=== PATIENT | male | born 1935 | race Caucasian/White ===

== ENCOUNTER → 2017-05-26 | Outpatient (CLI) | payer MEDICARE ==
[~2017-05-26] MED LIST: ALLO15TA PO; ATOR40TA75 PO; B12-1CHW PO; BIMA01SOL OU; CLOP75TA2 PO; D3 A1000 PO; DORZ2OPD OU; E-Z-GAS II EFFERVESCENT PACKET (SODIUM BICARB./CITRIC ACID/SIMETHICONE) As Ordered ONE; E-Z-HD 98% w/w 340GM SUSP BTL As Ordered ONE; E-Z-PAQUE 96% w/w SUSP 176GM BTL As Ordered ONE; FOLI1TAB4 PO; GEMF600T PO; HYDR-3910 PO; LABE10TAB PO; MAGN70CA PO; OMEP40CA2 PO; SITA50TAB PO
--- NOTE | 2017-05-26 17:24 | REP ---
ESOPHAGRAM: The procedure was performed by NICK Mccormick under the direct supervision of Dr. Wiggins. All imaging was reviewed with Dr. Wiggins prior to dictation. The patient was able to ingest liquid barium and air in a quantity sufficient to produce a double contrast examination. This was a somewhat limited examination due to patient aspirating barium early on in the procedure. Tertiary contractions were noted from the portion of the examination that we were able to obtain. The patient also had a very prominent cricopharyngeus. IMPRESSION: Limited examination due to patient aspiration of barium. Tertiary contractions were noted as well as a prominent cricopharyngeus. Fluoroscopy time: 1 minute and 15 seconds. Reviewed by NICK Haney 05/27/2017 08:53 AEdited and Signed by Alberto Wiggins MD 05/27/2017 09:35 A
== END ==
LOC: M RAD 08:36
PROVIDERS: ATTEND Internal Medicine Gastroenterology
DX: R13.10 Dysphagia, unspecified (principal)

== ENCOUNTER 2017-06-03 06:46 | Outpatient (CLI) | payer MEDICARE ==
[~2017-06-03] VITALS: Ht 165.1 cm; Wt 67.6 kg
[~2017-06-03 06:46] MED LIST changes: -E-Z-GAS II EFFERVESCENT PACKET (SODIUM BICARB./CITRIC ACID/SIMETHICONE) As Ordered ONE; -E-Z-HD 98% w/w 340GM SUSP BTL As Ordered ONE; -E-Z-PAQUE 96% w/w SUSP 176GM BTL As Ordered ONE; -MAGN70CA PO
[2017-06-03] MEDS ORDERED: NS 1,000 ML IV ONE (07:00)
[2017-06-03] MEDS ORDERED: MAGN70CA PO (07:22)
[2017-06-03] MEDS ORDERED: PROPOFOL 200 MG/20 ML VIAL As Ordered ONE (07:51)
[2017-06-03] MEDS ORDERED: LIDOCAINE 2% INJ 100 MG/5 ML SDV (FOR ANES.) As Ordered ONE (07:51)
--- NOTE | 2017-06-03 08:07 | ROOR ---
Patient Name: Alpesh Rosales Procedure Date: 06/03/2017 7:35 AM Date of : 1935 Age: 82 Room: [facility] Gender: Male Note Status: Finalized Procedure: Upper GI endoscopy Indications: Dysphagia Providers: Dhiraj Morales MD Referring MD: FRANK BROWN MD Requesting Provider: Medicines: Monitored Anesthesia Care Complications: No immediate complications. Procedure: Pre-Anesthesia Assessment: - Prior to the procedure, a History and Physical was performed, and patient medications and allergies were reviewed. The patient is competent. The risks and benefits of the procedure and the sedation options and risks were discussed with the patient. All questions were answered and informed consent was obtained. Patient identification and proposed procedure were verified by the physician, the nurse and the counseling program leader in the procedure room. Mental Status Examination: normal. Airway Examination: normal oropharyngeal airway and neck mobility. Respiratory Examination: clear to auscultation. CV Examination: normal. Prophylactic Antibiotics: The patient does not require prophylactic antibiotics. Prior Anticoagulants: The patient has taken no previous anticoagulant or antiplatelet agents. ASA Grade Assessment: III - A patient with severe systemic disease. After reviewing the risks and benefits, the patient was deemed in satisfactory condition to undergo the procedure. The anesthesia plan was to use monitored anesthesia care (MAC). Immediately prior to administration of medications, the patient was re-assessed for adequacy to receive sedatives. The heart rate, respiratory rate, oxygen saturations, blood pressure, adequacy of pulmonary ventilation, and response to care were monitored throughout the procedure. The physical status of the patient was re-assessed after the procedure. The Endoscope was introduced through the mouth, and advanced to the second part of duodenum. The upper GI endoscopy was accomplished without difficulty. The patient tolerated the procedure well. Findings: The examined esophagus was normal. Biopsies were obtained from the proximal and distal esophagus with cold forceps for histology of suspected eosinophilic esophagitis. Upper esophageal sphincter spasmodic contraction - traversed easility with 0.8cm wide scope. Diffuse minimal inflammation characterized by erythema was found in the gastric antrum. Biopsies were taken with a cold forceps for histology. No gross lesions were noted in the duodenal bulb and in the second portion of the duodenum. Impression: - Normal esophagus. Biopsied. - Upper esophageal sphincter spasmodic contraction - likely related to dysphagia ( r/o neurologic etiology). - Gastritis. Biopsied. - No gross lesions in the duodenal bulb and in the second portion of the duodenum. Recommendation: - Patient has a contact number available for emergencies. The signs and symptoms of potential delayed complications were discussed with the patient. Return to normal activities tomorrow. Written discharge instructions were provided to the patient. - Resume previous diet. - Continue present medications. - Await pathology results. - Return to GI clinic as previously scheduled 06/16/2017 at 1:00 PM - Return to primary care physician. Dhiraj Morales MD Dhiraj Morales MD 06/03/2017 8:07:20 AM This report has been signed electronically. Number of Addenda: 0 Note Initiated On: 06/03/2017 7:35 AM Estimated Blood Loss: Estimated blood loss was minimal.
[2017-06-03 08:15] VITALS: BP 138/64
== END 2017-06-03 08:26 | disposition home or self-care (01) ==
LOC: M OPP 06:46
PROVIDERS: ATTEND Internal Medicine Gastroenterology
DX: R13.10 Dysphagia, unspecified (principal); K29.70 Gastritis, unspecified, without bleeding; K22.4 Dyskinesia of esophagus; I12.9 Hypertensive chronic kidney disease with stage 1 through stage 4 chronic kidney disease, or unspecified chronic kidney disease; E78.5 Hyperlipidemia, unspecified; E11.9 Type 2 diabetes mellitus without complications; M10.9 Gout, unspecified; R12 Heartburn; I63.9 Cerebral infarction, unspecified; N18.3 Chronic kidney disease, stage 3 (moderate); Z85.46 Personal history of malignant neoplasm of prostate; Z92.3 Personal history of irradiation; Z79.899 Other long term (current) drug therapy; Z79.84 Long term (current) use of oral hypoglycemic drugs; Z80.8 Family history of malignant neoplasm of other organs or systems

== ENCOUNTER → 2017-07-01 | Outpatient (CLI) | payer MEDICARE ==
[~2017-07-01] MED LIST changes: +LIQUID POLIBAR PLUS 105% w/v 1900ML BTL As Ordered ONE; +MAGN70CA PO
--- NOTE | 2017-07-01 16:45 | REP ---
DOUBLE CONTRAST BARIUM ENEMA: Time Stamp Assembler film of the abdomen and pelvis demonstrates vascular calcifications in the pelvis as well as multiple radiodensity in the region of the prostate. Double contrast barium enema is performed. There is free flow or barium through the colon with reflux into the terminal ileum with no evidence of obstruction. The entire colon distends well with no annular constricting mass. Multiple sigmoid diverticula are present. Sigmoid is quite redundant. The redundancy and multiple sigmoid diverticula limit evaluation for underlying polyps. Multiple other scattered diverticula are seen in the transverse and left colon. No definite polypoid filling defects are seen in any portion of the colon. IMPRESSION: No suspicious lesions. Colonic diverticulosis. 1 minute and 7 seconds of fluoroscopy time was utilized for the procedure. Signed by Alberto Wiggins MD 07/01/2017 05:24 P
== END ==
LOC: M RAD 09:33
PROVIDERS: ATTEND Internal Medicine Gastroenterology
DX: D64.9 Anemia, unspecified (principal)

== ENCOUNTER 2019-12-04 16:40 | Inpatient (IN) | payer MEDICARE ==
[~2019-12-04] VITALS: Ht 165.1 cm; Wt 67.1 kg
[~2019-12-04 16:40] MED LIST changes: -ALLO15TA PO; +ALLO300T2 PO; +FOLI1TAB11 PO; -FOLI1TAB4 PO; -GEMF600T PO; +GEMF600T5 PO; -LIQUID POLIBAR PLUS 105% w/v 1900ML BTL As Ordered ONE; -OMEP40CA2 PO; +OMEP40CA97 PO
[2019-12-04] MEDS ORDERED: GLUCOSE 4 GM CHEW TABLET PO PRN (18:30)
[2019-12-04] MEDS ORDERED: ONDANSETRON 4 MG TAB (S0181) PO PRN (18:30)
[2019-12-04] MEDS ORDERED: GLUCAGON FOR INJ 1 MG VIAL (J1610) SC PRN (18:30)
[2019-12-04] MEDS ORDERED: DEXTROSE 50% 50 ML SYRINGE IV PRN (18:30)
[2019-12-04] MEDS ORDERED: BISACODYL 10 MG SUPP PR PRN (18:30)
[2019-12-04] MEDS ORDERED: MECLIZINE 25 MG TABLET PO PRN (18:30)
[2019-12-04] MEDS ORDERED: traMADol 50 MG TAB PO PRN (18:30)
[2019-12-04 20:00] VITALS: BP 162/69
[2019-12-04] MEDS: IPRATROPIUM 0.5MG/ALBUTEROL 2.5MG INH SOL UD 3ML (DUONEB)(J7620) NEB SCH (20:00)
[2019-12-04] MEDS: REMEDY PHYTOPLEX Z-GUARD PASTE 113GM TUBE (FROM STOREROOM PRODUCT) TOP SCH (21:00)
[2019-12-04] MEDS: HumaLOG INSULIN (NovoLOG) PER UNIT SC SCH (21:00)
[2019-12-04] MEDS ORDERED: COSO1SOL3 OU (22:42)
[2019-12-04] MEDS ORDERED: ACET1TAB55 PO (22:42)
[2019-12-04] MEDS ORDERED: POTA20EL PO (22:42)
[2019-12-04] MEDS ORDERED: ALBU83IN NEB (22:42)
[2019-12-04] MEDS ORDERED: MILKSUS3 PO (22:42)
[2019-12-04] MEDS ORDERED: FERR325T3 PO (22:42)
[2019-12-04] MEDS ORDERED: PRAV80TA2 PO (22:42)
[2019-12-04] MEDS ORDERED: NOVOINJ SC (22:42)
[2019-12-04] MEDS ORDERED: ALLO100T PO (22:42)
[2019-12-04] MEDS ORDERED: XALA0.007 OU (22:42)
[2019-12-04] MEDS ORDERED: VITA250T50 PO (22:42)
[2019-12-04] MEDS ORDERED: TRAM50TA2 PO (22:42)
[2019-12-04] MEDS ORDERED: VITAD1000T PO (22:42)
[2019-12-04] MEDS ORDERED: BISA10SU4 PR (22:42)
[2019-12-04] MEDS ORDERED: ELIQ2.5T PO (22:42)
[2019-12-04] MEDS ORDERED: HYDR-3911 PO (22:42)
[2019-12-04] MEDS ORDERED: DOCU100C17 PO (22:42)
[2019-12-04] MEDS ORDERED: PROM25TA12 PO (22:42)
[2019-12-04] MEDS ORDERED: LABE20TAB PO (22:42)
[2019-12-04] MEDS ORDERED: MECL-86 PO (22:42)
[2019-12-04] MEDS ORDERED: PILL CUTTER 1 EACH XX PRN (23:30)
[2019-12-05] MEDS: COSOPT OCUMETER PLUS 10ML (DORZOLAMIDE/TIMOLOL) OU SCH ×3 (00:21→20:40)
[2019-12-05] MEDS: LATANOPROST 0.005% OPHTH SOLN 2.5 ML OU SCH ×2 (00:21→20:40)
[2019-12-05] MEDS: DOCUSATE SODIUM 100 MG CAP PO SCH ×3 (00:22→20:40)
[2019-12-05] MEDS: ACETAMINOPHEN TAB 650MG DOSE (2X325MG) PO SCH ×4 (00:22→20:40)
[2019-12-05] MEDS: APIXABAN 2.5 MG TAB (ELIQUIS) PO SCH ×3 (00:22→20:40)
[2019-12-05] MEDS: **hydrALAZINE** 50 MG TAB PO SCH ×2 (00:23→20:40)
[2019-12-05] MEDS: SENNA 8.6 MG TAB (SENOKOT) PO SCH ×2 (00:23→20:40)
[2019-12-05] MEDS: PRAVASTATIN 20 MG TAB PO SCH ×2 (00:24→20:40)
[2019-12-05] MEDS: LABETALOL 200 MG TAB PO SCH ×2 (00:24→20:47)
[2019-12-05 00:25] VITALS: BP 151/69
[2019-12-05 05:57] VITALS: BP 112/56
[2019-12-05 06:34] LABS: BASO % 0.2 % (0.0-1.0); EOS # 0.6 10^3/uL (0.0-0.5); EOS % 5.7 % (0.0-3.0); HEMATOCRIT 25.9 % (42.0-52.0); HEMOGLOBIN 8.5 g/dl (13.5-17.5); LYMPH # 1.4 10^3/uL (1.5-5.0); LYMPH % 13.8 % (24.0-44.0); MEAN CORPUSCULAR HEMOGLOBIN 31.1 pg (27.0-33.0); MEAN CORPUSCULAR HGB CONC 32.8 g/dl (32.0-36.5); MEAN CORPUSCULAR VOLUME 94.9 fl (80.0-96.0); MONO # 0.8 10^3/uL (0.0-0.8); MONO % 7.9 % (0.0-5.0); NEUTROPHILS # 7.1 10^3/uL (1.5-8.5); NEUTROPHILS % 71.7 % (36.0-66.0); PLATELET COUNT, AUTOMATED 223 10^3/uL (150-450); RED BLOOD COUNT 2.73 10^6/uL (4.30-6.10); WHITE BLOOD COUNT 9.9 10^3/uL (4.0-10.0)
[2019-12-05 07:03] LABS: ALBUMIN 2.6 GM/DL (3.2-5.2); BILIRUBIN,TOTAL 0.6 MG/DL (0.2-1.0); CALCIUM LEVEL 8.6 MG/DL (8.8-10.2); CREATININE FOR GFR 2.17 MG/DL (0.70-1.30); GLOMERULAR FILTRATION RATE 30.8 (>35); POTASSIUM SERUM 3.9 MEQ/L (3.5-5.1); TOTAL PROTEIN 6.2 GM/DL (6.4-8.2)
[2019-12-05] MEDS: IPRATROPIUM 0.5MG/ALBUTEROL 2.5MG INH SOL UD 3ML (DUONEB)(J7620) NEB SCH ×3 (07:29→21:00)
[2019-12-05] MEDS: REMEDY PHYTOPLEX Z-GUARD PASTE 113GM TUBE (FROM STOREROOM PRODUCT) TOP SCH ×3 (09:00→20:45)
[2019-12-05] MEDS: CYANOCOBALAMIN 250 MCG TABLET PO SCH (09:10)
[2019-12-05] MEDS: VITAMIN D 1,000 INTERNATIONAL UNITS TABLET PO SCH (09:11)
[2019-12-05] MEDS: OMEPRAZOLE 20 MG CAP PO SCH (09:12)
[2019-12-05] MEDS: MAGNESIUM OXIDE 400 MG TAB (MAG-OX) PO SCH (09:12)
[2019-12-05] MEDS: FOLIC ACID 1 MG TAB PO SCH (09:12)
[2019-12-05] MEDS: allopurinoL 300 MG TAB PO SCH (09:12)
[2019-12-05] MEDS: FERROUS SULFATE 325MG TAB PO SCH (09:12)
[2019-12-05] MEDS: gemfibroziL 600 MG TAB PO SCH ×2 (09:13→17:30)
[2019-12-05] MEDS: HumaLOG INSULIN (NovoLOG) PER UNIT SC SCH ×4 (09:14→20:48)
[2019-12-05 14:00] VITALS: BP 132/60
--- NOTE | 2019-12-05 15:49 | HPEPDOC ---
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 Per the op-report patient underwent a direct anterior bipolar cement prosthetic placement performed by Dr. Hunt after which he developed COTY on CKD and transferred to [facility] in [place] for nephrology care. He received blood transfusion for post-op blood loss anemia and placed on Eliquis for DVT prophylaxis. He developed post-op ileus which resolved and he had significant dysphagia for which he underwent a MBS and was cleared for mechanical soft diet and pudding thickened liquids. He was evaluated by therapy, found to be well below his prior level of function for mobility and ADLs and deemed medically appropriate for discharge to ARU 12-04-19. REVIEW OF SYSTEMS: The following is a completed review of systems and has been reviewed. Review of systems otherwise unremarkable. PAIN: Patient self reports minimal left hip pain EYES: No recent vision changes EARS, NOSE, & THROAT: + dysphagia CARDIOVASCULAR: Denies chest pain or palpitations PULMONARY: Denies shortness of breath GASTROINTESTINAL: Denies constipation/diarrhea GENITOURINARY: denies dysuria MUSCULOSKELETAL: LLE weakness NEUROLOGICAL:denies tremor or paresthesias HEMATOLOGICAL: denies easy bruising SKIN: left hip incision PSYCHIATRIC: Unremarkable All other review of systems found to be negative. PAST MEDICAL HISTORY: as per HPI PAST SURGICAL HISTORY: appendectomy ALLERGIES: Please see below. MEDICATIONS: Please see below. SOCIAL HISTORY: no etoh/illicit drugs/smoking DIET:level 2 and pudding thickened liquids PHYSICAL EXAMINATION: VITAL SIGNS: Please see below. GENERAL: Pleasant and cooperative. No acute distress. HEENT: PERRL. Extraocular movements intact. Clear conjunctiva, mild left sided facial droop and tongue slightly deviates toward left CARDIOVASCULAR: Regular rate and rhythm. No murmurs, rubs, or gallops LUNGS: Clear to auscultation bilaterally. No wheezes. No rhonchi ABDOMEN: Soft, nontender, nondistended. Positive bowel sounds. Normal active bowel sounds NEUROLOGICAL: Alert and oriented times three. Cranial nerves II through XII grossly intact. Sensation grossly intact in all 4 limbs including left foot first web space EXTREMITIES: 5\5 strength bilateral upper extremities. 5\5 strength right lower extremity. 5/5 strength in left ankle DF/EHL, PF, >3/5 hip flexion and knee extension (limited due to surgery) (-) edema SKIN: left anterior hip incision without induration/ecchymosis/erythema LABORATORY DATA: Please see below. IMAGING:Imaging documentation personally reviewed by record FUNCTIONAL STATUS: Premorbid: Independent with all activities of daily life as well as mobility On Admission: Moderate assist for bed mobility, functional transfers, ambul ation, dressing, toileting GOALS: Mod-I community distances for ambulation, functional transfers, stairs, dressing, toileting, bathing, medical optimization ASSESSMENT:84-year-old M with past medical history of CVA and CKD who presents status post left hip bladimir-arthroplasty. PLAN: 1. rehab-PT advance gait training, strengthen/stretch/maintain ROM bilat LE maintaining anterior hip precautions OT- advance ADLs, strengthen/stretch/maintain ROM bilat UE, protect bilat shoulders RETAIL PRESENTATION SPECIALIST- dysphagia c/u to advance if possible from level 2 and pudding thickened 2. Neuro: hx of CVA with residual dysphagia 3. Cardio: pmh HTN c/u hydralazine and labetolol qHS- medicine consulted to assist in management 4. Resp: Encourage incentive spirometry and monitor for infection 5. Ortho: s/p left hip fracture with anterior approach hemiarthroplasty- maintain anterior hip precautions for 6 weeks, f/u Dr. Hunt on d/c 6. Renal: hx of CKD baseline Processing Lead around 2, will consult renal if worsens 7. : monitor PVRs 8. DVT ppx: Eliquis and TEDs 9. Endo: hx of DM c/u ISS 10. GI ppx: omeprazole 11. Pain: Tylenol and Tramadol 12. Dispo: TBD POST ADMISSION PHYSICIAN EVALUATION: Medical and functional status: Description of medical status, medical assessment: As above. Rehabilitation diagnosis and current and prior cold morbid medical conditions as above. Risk of complications and plans to mitigate them as above. Description of functional status current status is as above. Prior status as above. Status compared to preadmission: There are no clinically significant differences between the patient's current status and the information described on the preadm ission screening document. Treatment plan anticipated: Treatment plan is as described above. Required disciplines including physical therapy, occupational therapy, others as noted above Intensity of services: 3 hours a day, 6 days a week. Special considerations: There are no specific special or safety considerations that would likely preclude immediate implementation of an intensive rehabilitation program or subsequently influence the plan of care ATTESTATION: Considering all the information above, it is my best judgment that this patient requires intensive rehabilitation therapy as described above and an inpatient hospital environment due to the complexity of nursing, medical, and rehabilitation needs required by the patient. Furthermore, this patient can reasonably be expected to participate in an benefit from an inpatient rehabilitation stay with an interdisciplinary team approach to the delivery of rehabilitation care under the direction and supervision of rehabilitation physician PROGNOSIS: Excellent ESTIMATED LENGTH OF STAY:21-24 days. PROJECTED DISCHARGE DESTINATION: Home with family support and any durable medical equipment required to increase functional safety and mobility. TIME SPENT COUNSELING AND COORDINATING INITIAL CARE: Greater than 70 minutes. Vital Signs Vital Sign - Last 24 Hours 12/04/19 12/05/19 12/05/19 12/05/19 20:00 00:23 00:24 00:25 Temp 98.7 Pulse 73 68 68 Resp 18 B/P (MAP) 162/69 (100) 151/69 151/69 151/69 (96) Pulse Ox 95 O2 Delivery Room Air 12/05/19 12/05/19 12/05/19 12/05/19 05:57 09:13 09:43 14:00 Temp 98.0 96.8 Pulse 61 62 Resp 18 16 16 18 B/P (MAP) 112/56 (74) 132/60 (84) Pulse Ox 95 98 O2 Delivery Room Air Room Air Laboratory Data CBC/BMP Laboratory Tests 12/05/19 06:18 Labs 24H Laboratory Tests 2 12/05/19 05:02: Bedside Glucose (Misc Panel) 175H 12/05/19 06:18: Immature Granulocyte % (Auto) 0.7, Neutrophils (%) (Auto) 71.7H, Lymphocytes (%) (Auto) 13.8L, Monocytes (%) (Auto) 7.9H, Eosinophils (%) (Auto) 5.7H, Basophils (%) (Auto) 0.2, Neutrophils # (Auto) 7.1, Lymphocytes # (Auto) 1.4L, Monocytes # (Auto) 0.8, Eosinophils # (Auto) 0.6H, Basophils # (Auto) 0.0, Nucleated Red Blood Cells % (auto) 0.0, Anion Gap 5L, Glomerular Filtration Rate 30.8L, Calcium Level 8.6L, Total Bilirubin 0.6, Aspartate Amino Transf (AST/SGOT) 29, Alanine Aminotransferase (ALT/SGPT) 34, Alkaline Phosphatase 103, Total Protein 6.2L, Albumin 2.6L, Albumin/Globulin Ratio 0.72L 12/05/19 11:41: Bedside Glucose (Misc Panel) 102 FSBS Laboratory Tests Test 12/05/19 05:02 12/05/19 11:41 Range/Units Bedside Glucose (Misc Panel) 175 102 83-110 MG/DL Home Medications Scheduled Allopurinol (Allopurinol) 100 Mg Tablet, 150 MG PO DAILY, (Reported) Apixaban (Eliquis) 2.5 Mg Tablet, 2.5 MG PO BID, (Reported) Bisacodyl (Bisacodyl) 10 Mg Supp.rect, 10 MG SD Q3RD, (Reported) Cholecalciferol (Vitamin D3) (Vitamin D3) 1,000 Unit Tablet, 1,000 UNITS PO DAILY, (Reported) Cyanocobalamin (Vitamin B-12) (Vitamin B-12) 250 Mcg Tablet, 250 MCG PO DAILY, (Reported) Dorzolamide HCl/Timolol Maleat (Cosopt Eye Drops) 10 Ml Drops, 1 DROP OU BID, (Reported) Ferrous Sulfate (Ferrous Sulfate) 325 Mg Tablet.dr, 325 MG PO DAILY, (Reported) Folic Acid (Folic Acid) 1 Mg Tab, 1 MG PO DAILY, (Reported) Gemfibrozil (Gemfibrozil) 600 Mg Tab, 300 MG PO BID, (Reported) Hydralazine HCl (Hydralazine HCl) 50 Mg Tablet, 50 MG PO QHS, (Reported) Insulin Aspart (Novolog) 100 Unit/1 Ml Cartridge, 1 DOSE SC ACHS, (Reported) Labetalol HCl (Labetalol HCl) 200 Mg Tablet, 200 MG PO QHS, (Reported) Latanoprost (Xalatan) 0.005% 2.5ML Drops, 1 DROP OU QHS, (Reported) Meclizine HCl (Meclizine HCl) 25 Mg Tablet, 25 MG PO BID, (Reported) Omeprazole (Omeprazole) 40 Mg Cap, 40 MG PO DAILY, (Reported) GIVEN PANTOPRAZOLE AT [facility] Potassium Chloride (Potassium Chloride) 20 Meq/15 Ml Liquid, 40 MEQ PO DAILY, (Reported) GIVEN AT [facility] Pravastatin Sodium (Pravastatin Sodium) 80 Mg Tablet, 80 MG PO QHS, (Reported) Scheduled PRN Acetaminophen (Acetaminophen) 325 Mg Tablet, 650 MG PO Q6H PRN for PAIN, (Reported) Albuterol Sulf (Albuterol Sulfate) 2.5 Mg/3 Ml Vial.neb, 1 VIAL NEB Q4H PRN for SOB/WHEEZING, (Reported) Docusate Sodium (Docusate Sodium) 100 Mg Capsule, 100 MG PO BID PRN for CONSTIPATION, (Reported) Magnesium Hydroxide (Milk of Magnesia) 400 Mg/5 Ml Oral.susp, 30 ML PO DAILY PRN for CONSTIPATION, (Reported) Promethazine HCl (Promethazine HCl) 25 Mg Tablet, 25 MG PO Q4H PRN for NAUSEA OR VOMITING, (Reported) Tramadol HCl (Tramadol HCl) 50 Mg Tablet, 50 MG PO Q6H PRN for PAIN, (Reported) Allergies Coded Allergies: No Known Allergies (Unverified , 06/01/17) A-FIB/CHADSVASC A-FIB History Current/History of A-Fib/PAF?: No Current PO Anticoag Therapy: Yes EAMON COLEMAN MD Dec 05, 2019 15:49
--- NOTE | 2019-12-05 16:34 | IPNPDOC ---
Subjective Date Seen The patient was seen on 12/05/19. Subjective Chief Complaint/HPI Mr. Rosales is an 84-year-old male who was transferred to the ARU today from [facility]. from the medical records, patient had fallen and suffered a femoral neck fracture, underwent a partial hip arthroplasty on November 23 at [facility]. The patient further underwent a direct anterior bipolar cement prosthetic placement at [facility]. Apparently, he developed an COTY on CK D and was transferred to [facility] in [place], for nephrology care. He has subsequently been cleared for transfer to the ARU. Patient is seen laying in bed this afternoon. He denied any complaints. He has very little appetite as he said the food here is terrible. General: Reports: Normal Appetite ("the food here is terrible"); Denies: Chills, Night Sweats, Fatigue, Malaise Constitutional: Denies: Chills, Fever, Night Sweats Eyes: Denies: Pain ENT: Denies: Head Aches Skin: Denies: Rash Pulmonary: Denies: Dyspnea, Cough Cardiovascular: Denies: Chest Pain, Palpitations, Orthopnea, Paroxysmal Noc. Dyspnea, Edema, Lt Headedness Gastrointestinal: Denies: Nausea, Vomiting, Abdominal Pain, Diarrhea, Constipation Genitourinary: Denies: Dysuria, Retention Musculoskeletal: Denies: Neck Pain, Back Pain, Joint Pain, Muscle Pain, Spasms Neurological: Denies: Weakness, Numbness Psych: Reports: Mood Normal Objective Physical Examination General Exam: Positive: Alert, No Acute Distress Eye Exam: Positive: Conjunctiva & lids normal; Negative: Sclera icteric ENT Exam: Positive: Atraumatic, Mucous membr. moist/pink, Pharynx Normal Neck Exam: Positive: Supple; Negative: thyromegaly Chest Exam: Positive: Clear to auscultation, Normal air movement Heart Exam: Positive: Rate Normal, Regular Rhythm, Normal S1, Normal S2; Negative: Murmurs, Rubs Telemetry: Positive: No significant arrhythmia Abdomen Exam: Positive: Normal bowel sounds, Soft; Negative: Tenderness Extremity Exam: Positive: Normal pulses (palpable pulses bilateral LEs); Negative: Clubbing, Cyanosis, Edema, Tenderness, Swelling Skin Exam: Positive: Nl turgor and temperature Neuro Exam: Positive: Cranial Nerves 3-12 NL; Negative: Normal Speech (dysphagic) Psych Exam: Positive: Mood NL, Oriented x 3 Assessment /Plan Assessment Mr. Rosales is an 84-year-old male who was transferred to the ARU today from [facility]. From the medical records, patient had fallen and suffered a femoral neck fracture, underwent a partial hip arthroplasty on November 23 at [facility]. The patient further underwent a direct anterior bipolar cement prosthetic placement at [facility]. Apparently, he developed an COTY on CK D and was transferred to [facility] in [place], for nephrology care. He has subsequently been cleared for transfer to the ARU. Patient has a past medical history which includes: Diabetes mellitus, CVA, hypertension, CKD, hyperlipidemia. #1 Femoral neck fracture. Status post partial hip arthroplasty and direct anterior bipolar cement prosthetic placement per [facility]. Continued management and rehabilitation per mixer helper #2. Diabetes mellitus. ISS with FBS achs #3 hypertension. Continue labetalol and hydralazine #4. Hyperlipidemia. Continue statin and gemfibrozil #5. Chronic kidney disease. Creatinine currently 2.17 I will review the notes from [facility] nephrology in order to establish patient's current baseline 6. CVA with dysphagia. Continued rehabilitation per ARU Soft mechanical diet Plan/VTE VTE Prophylaxis Ordered?: Yes (chronic Eliquis) VS, I&O, 24H, Fishbone Vital Signs/I&O Vital Signs Date Time Temp Pulse Resp B/P (MAP) Pulse Ox O2 Delivery O2 Flow Rate FiO2 12/05/19 14:00 96.8 62 18 132/60 (84) 98 Room Air I&O- Last 24 Hours up to 6 AM 12/05/19 06:00 Intake Total 0 ml Output Total 200 ml Balance -200 ml Laboratory Data 24H LABS Laboratory Tests 2 12/05/19 05:02: Bedside Glucose (Misc Panel) 175H 12/05/19 06:18: Immature Granulocyte % (Auto) 0.7, Neutrophils (%) (Auto) 71.7H, Lymphocytes (%) (Auto) 13.8L, Monocytes (%) (Auto) 7.9H, Eosinophils (%) (Auto) 5.7H, Basophils (%) (Auto) 0.2, Neutrophils # (Auto) 7.1, Lymphocytes # (Auto) 1.4L, Monocytes # (Auto) 0.8, Eosinophils # (Auto) 0.6H, Basophils # (Auto) 0.0, Nucleated Red Blood Cells % (auto) 0.0, Anion Gap 5L, Glomerular Filtration Rate 30.8L, Calcium Level 8.6L, Total Bilirubin 0.6, Aspartate Amino Transf (AST/SGOT) 29, Alanine Aminotransferase (ALT/SGPT) 34, Alkaline Phosphatase 103, Total Protein 6.2L, Albumin 2.6L, Albumin/Globulin Ratio 0.72L 12/05/19 11:41: Bedside Glucose (Misc Panel) 102 CBC/BMP Laboratory Tests 12/05/19 06:18 RUPESH KING PA-C Dec 05, 2019 16:34
[2019-12-05 20:33] VITALS: BP 138/63
[2019-12-06 05:42] VITALS: BP 149/68
[2019-12-06 07:39] LABS: BASO % 0.3 % (0.0-1.0); EOS # 0.6 10^3/uL (0.0-0.5); EOS % 5.9 % (0.0-3.0); HEMATOCRIT 29.2 % (42.0-52.0); HEMOGLOBIN 9.4 g/dl (13.5-17.5); LYMPH % 10.3 % (24.0-44.0); MEAN CORPUSCULAR HEMOGLOBIN 30.9 pg (27.0-33.0); MEAN CORPUSCULAR HGB CONC 32.2 g/dl (32.0-36.5); MEAN CORPUSCULAR VOLUME 96.1 fl (80.0-96.0); MONO # 0.7 10^3/uL (0.0-0.8); MONO % 7.2 % (0.0-5.0); NEUTROPHILS # 7.4 10^3/uL (1.5-8.5); NEUTROPHILS % 75.7 % (36.0-66.0); PLATELET COUNT, AUTOMATED 280 10^3/uL (150-450); RED BLOOD COUNT 3.04 10^6/uL (4.30-6.10); WHITE BLOOD COUNT 9.7 10^3/uL (4.0-10.0)
[2019-12-06 08:01] LABS: CALCIUM LEVEL 9.1 MG/DL (8.8-10.2); CREATININE FOR GFR 2.23 MG/DL (0.70-1.30); GLOMERULAR FILTRATION RATE 29.9 (>35)
[2019-12-06] MEDS: IPRATROPIUM 0.5MG/ALBUTEROL 2.5MG INH SOL UD 3ML (DUONEB)(J7620) NEB SCH ×3 (08:39→19:36)
[2019-12-06] MEDS: REMEDY PHYTOPLEX Z-GUARD PASTE 113GM TUBE (FROM STOREROOM PRODUCT) TOP SCH ×3 (09:00→20:13)
[2019-12-06] MEDS ORDERED: E-Z-PAQUE 96% w/w SUSP 176GM BTL As Ordered ONE (09:01)
[2019-12-06] MEDS ORDERED: VARIBAR NECTAR 40% w/v 240ML SUSP BTL As Ordered ONE (09:01)
[2019-12-06] MEDS ORDERED: VARIBAR PUDDING 40% w/v 230ML TUBE As Ordered ONE (09:01)
[2019-12-06] MEDS: VITAMIN D 1,000 INTERNATIONAL UNITS TABLET PO SCH (09:15)
[2019-12-06] MEDS: CYANOCOBALAMIN 250 MCG TABLET PO SCH (09:15)
[2019-12-06] MEDS: MAGNESIUM OXIDE 400 MG TAB (MAG-OX) PO SCH (09:15)
[2019-12-06] MEDS: gemfibroziL 600 MG TAB PO SCH ×2 (09:16→17:27)
[2019-12-06] MEDS: DOCUSATE SODIUM 100 MG CAP PO SCH ×2 (09:17→20:45)
[2019-12-06] MEDS: FERROUS SULFATE 325MG TAB PO SCH (09:17)
[2019-12-06] MEDS: FOLIC ACID 1 MG TAB PO SCH (09:17)
[2019-12-06] MEDS: APIXABAN 2.5 MG TAB (ELIQUIS) PO SCH ×2 (09:17→20:45)
[2019-12-06] MEDS: allopurinoL 300 MG TAB PO SCH (09:18)
[2019-12-06] MEDS: OMEPRAZOLE 20 MG CAP PO SCH (09:18)
[2019-12-06] MEDS: HumaLOG INSULIN (NovoLOG) PER UNIT SC SCH ×4 (09:18→20:13)
[2019-12-06] MEDS: COSOPT OCUMETER PLUS 10ML (DORZOLAMIDE/TIMOLOL) OU SCH ×2 (09:19→20:45)
[2019-12-06] MEDS: ACETAMINOPHEN TAB 650MG DOSE (2X325MG) PO SCH (09:19)
--- NOTE | 2019-12-06 12:33 | IPNPDOC ---
PM&R Progress Note DATE OF SERVICE: Dec 06, 2019 Sports Management Intern Progress Note Subjective: Patient reporting he feels well overall and is walking well without pain. REVIEW OF SYSTEMS: The following is a completed review of systems and has been reviewed. Review of systems otherwise unremarkable. PAIN: Patient self reports minimal left hip pain EYES: No recent vision changes EARS, NOSE, & THROAT: + dysphagia CARDIOVASCULAR: Denies chest pain or palpitations PULMONARY: Denies shortness of breath GASTROINTESTINAL: Denies constipation/diarrhea GENITOURINARY: denies dysuria MUSCULOSKELETAL: LLE weakness NEUROLOGICAL:denies tremor or paresthesias HEMATOLOGICAL: denies easy bruising SKIN: left hip incision PSYCHIATRIC: Unremarkable All other review of systems found to be negative. PHYSICAL EXAMINATION: VITAL SIGNS: Please see below. GENERAL: Pleasant and cooperative. No acute distress. HEENT: PERRL. Extraocular movements intact. Clear conjunctiva, mild left sided facial droop and tongue slightly deviates toward left CARDIOVASCULAR: Regular rate and rhythm. No murmurs, rubs, or gallops LUNGS: Clear to auscultation bilaterally. No wheezes. No rhonchi ABDOMEN: Soft, nontender, nondistended. Positive bowel sounds. Normal active bowel sounds NEUROLOGICAL: Alert and oriented times three. Cranial nerves II through XII grossly intact. Sensation grossly intact in all 4 limbs including left foot first web space EXTREMITIES: 5\5 strength bilateral upper extremities. 5\5 strength right lower extremity. 5/5 strength in left ankle DF/EHL, PF, >3/5 hip flexion and knee extension (limited due to surgery) (-) edema SKIN: left anterior hip incision without induration/ecchymosis/erythema ASSESSMENT:84-year-old M with past medical history of CVA and CKD who presents status post left hip bladimir-arthroplasty. PLAN: 1. 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 Neuro: hx of CVA with residual dysphagia 3. Cardio: pmh HTN c/u hydralazine and labetolol qHS- medicine consulted to assist in management 4. Resp: Encourage incentive spirometry and monitor for infection 5. Ortho: s/p left hip fracture with anterior approach hemiarthroplasty- maintain anterior hip precautions for 6 weeks, f/u Dr. Hunt on d/c 6. 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 : monitor PVRs 8. DVT ppx: Eliquis and TEDs 9. Endo: hx of DM c/u ISS 10. GI ppx: omeprazole 11. Pain: Tylenol and Tramadol 12. Dispo: TBD Allergies Coded Allergies: No Known Allergies (Unverified , 06/01/17) Vital Signs Vital Signs Date Time Temp Pulse Resp B/P (MAP) Pulse Ox O2 Delivery O2 Flow Rate FiO2 12/06/19 05:42 97.2 60 18 149/68 (95) 95 Room Air Laboratory Data CBC/BMP Laboratory Tests 12/06/19 07:26 Labs 24H Laboratory Tests 2 12/05/19 17:03: Bedside Glucose (Misc Panel) 121H 12/05/19 20:20: Bedside Glucose (Misc Panel) 181H 12/06/19 05:32: Bedside Glucose (Misc Panel) 147H 12/06/19 07:26: Immature Granulocyte % (Auto) 0.6, Neutrophils (%) (Auto) 75.7H, Lymphocytes (%) (Auto) 10.3L, Monocytes (%) (Auto) 7.2H, Eosinophils (%) (Auto) 5.9H, Basophils (%) (Auto) 0.3, Neutrophils # (Auto) 7.4, Lymphocytes # (Auto) 1.0L, Monocytes # (Auto) 0.7, Eosinophils # (Auto) 0.6H, Basophils # (Auto) 0.0, Nucleated Red Blood Cells % (auto) 0.0, Anion Gap 7L, Glomerular Filtration Rate 29.9L, Calcium Level 9.1 12/06/19 11:49: Bedside Glucose (Misc Panel) 107 Current Medications Current Medications Current Medications Medications (Trade) Dose Ordered Sig/Iram Route PRN Reason Start Time Stop Time Status Last Admin Dose Admin Acetaminophen (Tylenol Tab) 1,000 mg TID PO 12/04/19 21:00 12/06/19 09:19 Albuterol/ Ipratropium (Duoneb (Ipr 0.5mg/Alb 2.5mg)) 3 ml RTID NEB 12/04/19 20:00 12/06/19 08:39 Allopurinol (Zyloprim) 150 mg DAILY PO 12/05/19 09:00 12/06/19 09:18 Apixaban (Eliquis) 2.5 mg BID PO 12/04/19 21:00 12/06/19 09:17 Bisacodyl (Dulcolax Suppository) 10 mg DAILYPRN PRN [place] CONSTIPATION 12/04/19 18:30 Cyanocobalamin (Vitamin B12) 250 mcg DAILY PO 12/05/19 09:00 12/06/19 09:15 Dextrose (Dextrose 50%) 25 ml ASDIRECTED PRN IV SEE LABEL COMMENTS 12/04/19 18:30 Docusate Sodium (Colace) 100 mg BID PO 12/04/19 21:00 12/06/19 09:17 Dorzolamide/ Timolol (Cosopt Ocumeter Plus) 1 drop BID OU 12/04/19 21:00 12/06/19 09:19 Ferrous Sulfate (Ferrous Sulfate) 325 mg DAILY PO 12/05/19 09:00 12/06/19 09:17 Folic Acid (Folic Acid) 1 mg DAILY PO 12/05/19 09:00 12/06/19 09:17 Gemfibrozil (Lopid) 300 mg BID@0730,1730 PO 12/05/19 07:30 12/06/19 09:16 Glucagon (Glucagon) 1 mg ASDIRECTED PRN SC SEE LABEL COMMENTS 12/04/19 18:30 Glucose (Glucose) 16 GM ASDIRECTED PRN PO SEE LABEL COMMENTS 12/04/19 18:30 Home Med (Med Rec Complete!) ASDIRECTED XX 12/04/19 23:00 12/04/19 23:13 DC Hydralazine HCl (Apresoline) 50 mg QHS PO 12/04/19 21:00 12/05/19 20:40 Insulin Human Lispro (HumaLOG INSULIN) SEE PROTOCOL TABLE AC SC 12/05/19 07:30 12/06/19 09:18 Insulin Human Lispro (HumaLOG INSULIN) SEE PROTOCOL TABLE QHS SC 12/04/19 21:00 Labetalol HCl (Normodyne, Trandate) 200 mg QHS PO 12/04/19 21:00 12/05/19 00:24 Latanoprost (Xalatan 0.005% Op Soln) 1 drop QHS OU 12/04/19 21:00 12/05/19 20:40 Magnesium Oxide (Mag-Ox) 400 mg DAILY PO 12/05/19 09:00 12/06/19 09:15 Meclizine HCl (Antivert) 25 mg BIDP PRN PO DIZZINESS 12/04/19 18:30 Omeprazole (PriLOSEC) 40 mg DAILY PO 12/05/19 09:00 12/06/19 09:18 Ondansetron HCl (Zofran) 4 mg Q6HP PRN PO NAUSEA 12/04/19 18:30 Pravastatin Sodium (Pravachol) 80 mg QHS PO 12/04/19 21:00 12/05/19 20:40 Senna (Senokot) 1 tab QHS PO 12/04/19 21:00 12/05/19 20:40 Tramadol HCl (Ultram) 50 mg Q6HP PRN PO MODERATE PAIN (PS 5-7) 12/04/19 18:30 12/05/19 09:13 Vitamin D (Vitamin D) 1,000 units DAILY PO 12/05/19 09:00 12/06/19 09:15 EAMON COLEMAN MD Dec 06, 2019 12:33
[2019-12-06 14:00] VITALS: BP 150/69
[2019-12-06] MEDS: ACETAMINOPHEN 500 MG TAB PO SCH ×2 (17:27→20:46)
--- NOTE | 2019-12-06 17:36 | REP ---
COOKIE SWALLOW The procedure was performed under the direct supervision of Dr. Muller. The procedure was performed with Zee Abraham from speech pathology present. 5 ml aliquots of thin, pudding, soft, mixed fruit, honey and nectar consistency barium was administered. With thin, fruit and nectar consistency barium there is laryngeal penetration. The detailed report of this examination will be provided by speech pathology. 2 minutes of fluoroscopy time was utilized for this procedure. Electronically Signed by NICK Love 12/06/2019 04:40 P Electronically Signed by Deandre Muller MD 12/06/2019 05:26 P
[2019-12-06 20:00] VITALS: BP 139/66
[2019-12-06] MEDS: LABETALOL 200 MG TAB PO SCH (20:13)
[2019-12-06] MEDS: **hydrALAZINE** 50 MG TAB PO SCH (20:45)
[2019-12-06] MEDS: PRAVASTATIN 20 MG TAB PO SCH (20:45)
[2019-12-06] MEDS: SENNA 8.6 MG TAB (SENOKOT) PO SCH (20:45)
[2019-12-06] MEDS: LATANOPROST 0.005% OPHTH SOLN 2.5 ML OU SCH (20:46)
[2019-12-07 06:00] VITALS: BP 154/68
[2019-12-07] MEDS: gemfibroziL 600 MG TAB PO SCH ×2 (07:30→17:14)
[2019-12-07] MEDS: IPRATROPIUM 0.5MG/ALBUTEROL 2.5MG INH SOL UD 3ML (DUONEB)(J7620) NEB SCH ×3 (07:49→19:41)
[2019-12-07] MEDS: DOCUSATE SODIUM 100 MG CAP PO SCH ×2 (09:00→20:19)
[2019-12-07] MEDS: REMEDY PHYTOPLEX Z-GUARD PASTE 113GM TUBE (FROM STOREROOM PRODUCT) TOP SCH ×3 (09:00→20:31)
[2019-12-07] MEDS: MAGIC MOUTHWASH SUSPENSION BTL SSP SCH ×3 (09:06→17:15)
[2019-12-07] MEDS: HumaLOG INSULIN (NovoLOG) PER UNIT SC SCH ×4 (09:07→21:00)
[2019-12-07] MEDS: FERROUS SULFATE 325MG TAB PO SCH (09:08)
[2019-12-07] MEDS: allopurinoL 300 MG TAB PO SCH (09:08)
[2019-12-07] MEDS: MAGNESIUM OXIDE 400 MG TAB (MAG-OX) PO SCH (09:09)
[2019-12-07] MEDS: ACETAMINOPHEN 500 MG TAB PO SCH ×3 (09:09→20:20)
[2019-12-07] MEDS: FOLIC ACID 1 MG TAB PO SCH (09:10)
[2019-12-07] MEDS: OMEPRAZOLE 20 MG CAP PO SCH (09:10)
[2019-12-07] MEDS: CYANOCOBALAMIN 250 MCG TABLET PO SCH (09:10)
[2019-12-07] MEDS: APIXABAN 2.5 MG TAB (ELIQUIS) PO SCH ×2 (09:10→20:20)
[2019-12-07] MEDS: VITAMIN D 1,000 INTERNATIONAL UNITS TABLET PO SCH (09:10)
[2019-12-07] MEDS: COSOPT OCUMETER PLUS 10ML (DORZOLAMIDE/TIMOLOL) OU SCH ×2 (09:10→20:31)
[2019-12-07 14:00] VITALS: BP 145/58
[2019-12-07 19:42] VITALS: BP 144/63
[2019-12-07] MEDS: PRAVASTATIN 20 MG TAB PO SCH (20:20)
[2019-12-07] MEDS: SENNA 8.6 MG TAB (SENOKOT) PO SCH (20:20)
[2019-12-07] MEDS: **hydrALAZINE** 50 MG TAB PO SCH (20:25)
[2019-12-07] MEDS: LATANOPROST 0.005% OPHTH SOLN 2.5 ML OU SCH (20:31)
[2019-12-07] MEDS: LABETALOL 200 MG TAB PO SCH (20:33)
[2019-12-08 06:00] VITALS: BP 170/72
[2019-12-08 07:05] LABS: BASO % 0.4 % (0.0-1.0); EOS # 0.4 10^3/uL (0.0-0.5); EOS % 5.9 % (0.0-3.0); HEMATOCRIT 30.5 % (42.0-52.0); HEMOGLOBIN 9.7 g/dl (13.5-17.5); LYMPH # 1.1 10^3/uL (1.5-5.0); LYMPH % 15.1 % (24.0-44.0); MEAN CORPUSCULAR HEMOGLOBIN 30.6 pg (27.0-33.0); MEAN CORPUSCULAR HGB CONC 31.8 g/dl (32.0-36.5); MEAN CORPUSCULAR VOLUME 96.2 fl (80.0-96.0); MONO # 0.6 10^3/uL (0.0-0.8); MONO % 8.7 % (0.0-5.0); NEUTROPHILS % 69.5 % (36.0-66.0); PLATELET COUNT, AUTOMATED 300 10^3/uL (150-450); RED BLOOD COUNT 3.17 10^6/uL (4.30-6.10); WHITE BLOOD COUNT 7.1 10^3/uL (4.0-10.0)
[2019-12-08] MEDS: IPRATROPIUM 0.5MG/ALBUTEROL 2.5MG INH SOL UD 3ML (DUONEB)(J7620) NEB SCH ×3 (07:06→20:20)
[2019-12-08 07:25] LABS: CALCIUM LEVEL 8.8 MG/DL (8.8-10.2); CREATININE FOR GFR 2.09 MG/DL (0.70-1.30); GLOMERULAR FILTRATION RATE 32.2 (>35); POTASSIUM SERUM 4.7 MEQ/L (3.5-5.1)
[2019-12-08] MEDS: HumaLOG INSULIN (NovoLOG) PER UNIT SC SCH ×4 (07:42→20:37)
[2019-12-08] MEDS: gemfibroziL 600 MG TAB PO SCH ×2 (07:43→17:23)
[2019-12-08] MEDS: MAGIC MOUTHWASH SUSPENSION BTL SSP SCH ×3 (07:43→16:34)
[2019-12-08] MEDS: ACETAMINOPHEN 500 MG TAB PO SCH ×3 (07:45→20:36)
[2019-12-08] MEDS: FOLIC ACID 1 MG TAB PO SCH (09:00)
[2019-12-08] MEDS: MAGNESIUM OXIDE 400 MG TAB (MAG-OX) PO SCH (09:00)
[2019-12-08] MEDS: VITAMIN D 1,000 INTERNATIONAL UNITS TABLET PO SCH (09:00)
[2019-12-08] MEDS: FERROUS SULFATE 325MG TAB PO SCH (09:00)
[2019-12-08] MEDS: CYANOCOBALAMIN 250 MCG TABLET PO SCH (09:00)
[2019-12-08] MEDS: OMEPRAZOLE 20 MG CAP PO SCH (09:00)
[2019-12-08] MEDS: allopurinoL 300 MG TAB PO SCH (09:01)
[2019-12-08] MEDS: APIXABAN 2.5 MG TAB (ELIQUIS) PO SCH ×2 (09:01→20:36)
[2019-12-08] MEDS: DOCUSATE SODIUM 100 MG CAP PO SCH ×2 (09:01→20:35)
[2019-12-08] MEDS: COSOPT OCUMETER PLUS 10ML (DORZOLAMIDE/TIMOLOL) OU SCH ×2 (09:02→20:37)
[2019-12-08] MEDS: REMEDY PHYTOPLEX Z-GUARD PASTE 113GM TUBE (FROM STOREROOM PRODUCT) TOP SCH ×3 (09:12→20:37)
[2019-12-08 14:00] VITALS: BP 139/62
[2019-12-08 20:10] VITALS: BP 136/61
[2019-12-08] MEDS: SENNA 8.6 MG TAB (SENOKOT) PO SCH (20:36)
[2019-12-08] MEDS: PRAVASTATIN 20 MG TAB PO SCH (20:36)
[2019-12-08] MEDS: LATANOPROST 0.005% OPHTH SOLN 2.5 ML OU SCH (20:37)
[2019-12-08] MEDS: LABETALOL 200 MG TAB PO SCH (20:37)
[2019-12-08] MEDS: **hydrALAZINE** 50 MG TAB PO SCH (20:37)
[2019-12-09 05:45] VITALS: BP 125/56
[2019-12-09] MEDS: IPRATROPIUM 0.5MG/ALBUTEROL 2.5MG INH SOL UD 3ML (DUONEB)(J7620) NEB SCH ×3 (07:07→19:48)
[2019-12-09] MEDS: HumaLOG INSULIN (NovoLOG) PER UNIT SC SCH ×4 (08:28→20:31)
[2019-12-09] MEDS: ACETAMINOPHEN 500 MG TAB PO SCH ×3 (08:29→20:30)
[2019-12-09] MEDS: FERROUS SULFATE 325MG TAB PO SCH (08:30)
[2019-12-09] MEDS: FOLIC ACID 1 MG TAB PO SCH (08:30)
[2019-12-09] MEDS: allopurinoL 300 MG TAB PO SCH (08:30)
[2019-12-09] MEDS: OMEPRAZOLE 20 MG CAP PO SCH (08:31)
[2019-12-09] MEDS: APIXABAN 2.5 MG TAB (ELIQUIS) PO SCH ×2 (08:31→20:30)
[2019-12-09] MEDS: gemfibroziL 600 MG TAB PO SCH ×2 (08:31→16:08)
[2019-12-09] MEDS: CYANOCOBALAMIN 250 MCG TABLET PO SCH (08:31)
[2019-12-09] MEDS: MAGNESIUM OXIDE 400 MG TAB (MAG-OX) PO SCH (08:32)
[2019-12-09] MEDS: MAGIC MOUTHWASH SUSPENSION BTL SSP SCH ×3 (08:32→16:14)
[2019-12-09] MEDS: VITAMIN D 1,000 INTERNATIONAL UNITS TABLET PO SCH (08:32)
[2019-12-09] MEDS: DOCUSATE SODIUM 100 MG CAP PO SCH ×2 (08:32→20:31)
[2019-12-09] MEDS: REMEDY PHYTOPLEX Z-GUARD PASTE 113GM TUBE (FROM STOREROOM PRODUCT) TOP SCH ×3 (08:33→20:32)
[2019-12-09] MEDS: COSOPT OCUMETER PLUS 10ML (DORZOLAMIDE/TIMOLOL) OU SCH ×2 (08:33→20:32)
[2019-12-09 14:01] VITALS: BP 152/70
[2019-12-09 20:01] VITALS: BP 129/63
[2019-12-09] MEDS: PRAVASTATIN 20 MG TAB PO SCH (20:30)
[2019-12-09] MEDS: SENNA 8.6 MG TAB (SENOKOT) PO SCH (20:30)
[2019-12-09] MEDS: **hydrALAZINE** 50 MG TAB PO SCH (20:31)
[2019-12-09] MEDS: LABETALOL 200 MG TAB PO SCH (20:31)
[2019-12-09] MEDS: LATANOPROST 0.005% OPHTH SOLN 2.5 ML OU SCH (20:32)
[2019-12-10 04:57] VITALS: BP 144/94
[2019-12-10 05:36] VITALS: BP 144/94
[2019-12-10 07:04] LABS: BASO % 0.3 % (0.0-1.0); EOS # 0.3 10^3/uL (0.0-0.5); EOS % 5.1 % (0.0-3.0); HEMATOCRIT 32.5 % (42.0-52.0); HEMOGLOBIN 10.2 g/dl (13.5-17.5); LYMPH # 1.1 10^3/uL (1.5-5.0); MEAN CORPUSCULAR HEMOGLOBIN 30.6 pg (27.0-33.0); MEAN CORPUSCULAR HGB CONC 31.4 g/dl (32.0-36.5); MEAN CORPUSCULAR VOLUME 97.6 fl (80.0-96.0); MONO # 0.5 10^3/uL (0.0-0.8); MONO % 8.8 % (0.0-5.0); NEUTROPHILS # 4.1 10^3/uL (1.5-8.5); NEUTROPHILS % 67.5 % (36.0-66.0); PLATELET COUNT, AUTOMATED 315 10^3/uL (150-450); RED BLOOD COUNT 3.33 10^6/uL (4.30-6.10)
[2019-12-10 07:28] LABS: CALCIUM LEVEL 9.2 MG/DL (8.8-10.2); CREATININE FOR GFR 1.98 MG/DL (0.70-1.30); GLOMERULAR FILTRATION RATE 34.3 (>35); POTASSIUM SERUM 4.3 MEQ/L (3.5-5.1)
[2019-12-10] MEDS: HumaLOG INSULIN (NovoLOG) PER UNIT SC SCH ×4 (07:30→20:48)
[2019-12-10] MEDS: IPRATROPIUM 0.5MG/ALBUTEROL 2.5MG INH SOL UD 3ML (DUONEB)(J7620) NEB SCH ×3 (07:37→19:27)
[2019-12-10] MEDS: MAGNESIUM OXIDE 400 MG TAB (MAG-OX) PO SCH (08:32)
[2019-12-10] MEDS: FOLIC ACID 1 MG TAB PO SCH (08:32)
[2019-12-10] MEDS: VITAMIN D 1,000 INTERNATIONAL UNITS TABLET PO SCH (08:32)
[2019-12-10] MEDS: APIXABAN 2.5 MG TAB (ELIQUIS) PO SCH ×2 (08:33→20:54)
[2019-12-10] MEDS: ACETAMINOPHEN 500 MG TAB PO SCH ×3 (08:33→20:55)
[2019-12-10] MEDS: CYANOCOBALAMIN 250 MCG TABLET PO SCH (08:33)
[2019-12-10] MEDS: MAGIC MOUTHWASH SUSPENSION BTL SSP SCH ×3 (08:34→16:57)
[2019-12-10] MEDS: allopurinoL 300 MG TAB PO SCH (08:34)
[2019-12-10] MEDS: FERROUS SULFATE 325MG TAB PO SCH (08:34)
[2019-12-10] MEDS: gemfibroziL 600 MG TAB PO SCH ×2 (08:34→16:57)
[2019-12-10] MEDS: DOCUSATE SODIUM 100 MG CAP PO SCH ×2 (08:35→20:54)
[2019-12-10] MEDS: OMEPRAZOLE 20 MG CAP PO SCH (08:35)
[2019-12-10] MEDS: REMEDY PHYTOPLEX Z-GUARD PASTE 113GM TUBE (FROM STOREROOM PRODUCT) TOP SCH ×3 (08:36→20:49)
[2019-12-10] MEDS: COSOPT OCUMETER PLUS 10ML (DORZOLAMIDE/TIMOLOL) OU SCH ×2 (08:36→20:55)
--- NOTE | 2019-12-10 10:48 | IPNPDOC ---
Text Note Date of Service The patient was seen on 12/10/19. NOTE Chief Complaint/HPI Mr. Rosales is an 84-year-old male who was transferred to the ARU today from [facility]. from the medical records, patient had fallen and suffered a f emoral neck fracture, underwent a partial hip arthroplasty on November 23 at [facility]. The patient further underwent a direct anterior bipolar cement prosthetic placement at [facility]. Apparently, he developed an COTY on CK D and was transferred to [facility] in [place], for nephrology care. He has subsequently been cleared for transfer to the ARU. Patient is seen first sitting up in bed and then walking very well with his walker. He reported he is doing better now. He continues to have some pain and discomfort in the hip, but he feels it is being adequately managed. He isn't drinking very much fluids as he is restricted to pudding thick fluids. No further issues reported. Objective Physical Examination General Exam: Positive: Alert, No Acute Distress Eye Exam: Positive: Conjunctiva & lids normal; Negative: Sclera icteric ENT Exam: Positive: Atraumatic, Mucous membr. moist/pink, Pharynx Normal Neck Exam: Positive: Supple; Negative: thyromegaly Chest Exam: Positive: Clear to auscultation, Normal air movement Heart Exam: Positive: Rate Normal, Regular Rhythm, Normal S1, Normal S2; Negative: Murmurs, Rubs Telemetry: Positive: No significant arrhythmia Abdomen Exam: Positive: Normal bowel sounds, Soft; Negative: Tenderness Extremity Exam: Positive: Normal pulses (palpable pulses bilateral LEs); Negative: Clubbing, Cyanosis, Edema, Tenderness, Swelling Skin Exam: Positive: Nl turgor and temperature Neuro Exam: Positive: Cranial Nerves 3-12 NL; Negative: Normal Speech (dysphagic) Psych Exam: Positive: Mood NL, Oriented x 3 Assessment /Plan Assessment Mr. Rosales is an 84-year-old male who was transferred to the ARU today from [facility]. From the medical records, patient had fallen and suffered a femoral neck fracture, underwent a partial hip arthroplasty on November 23 at [facility]. The patient further underwent a direct anterior bipolar cement prosthetic placement at [facility]. Apparently, he developed an COTY on CK D and was transferred to [facility] in [place], for nephrology care. He has subsequently been cleared for transfer to the ARU. Patient has a past medical history which includes: Diabetes mellitus, CVA, hypertension, CKD, hyperlipidemia. #1 Femoral neck fracture. Status post partial hip arthroplasty and direct anterior bipolar cement prosthetic placement per [facility]. Continued management and rehabilitation per pond tender #2. Diabetes mellitus. ISS with FBS achs #3 hypertension. Continue labetalol and hydralazine #4. Hyperlipidemia. Continue statin and gemfibrozil #5. Chronic kidney disease. Recent history of COTY on CKD requiring nephrology care while a [facility]; Currently at baseline PCP notes on 12/03 note the pt's Cr at baseline is in the 'low 2s. His COTY while at [facility] was 2/2 to volume overload; treated with IV diuretics and returned to baseline. Per the medical record, no hydronephrosis or obstruction per renal USG. -Start daily weights, monitor Cr. -Current diet includes pudding thick liquids 6. CVA with dysphagia. Continued rehabilitation per ARU Soft mechanical diet Plan/VTE VTE Prophylaxis Ordered?: Yes (chronic Eliquis) VS,Fishbone, I+O VS, Fishbone, I+O Laboratory Tests 12/10/19 06:50 Vital Signs Date Time Temp Pulse Resp B/P (MAP) Pulse Ox O2 Delivery O2 Flow Rate FiO2 12/10/19 05:36 97.8 73 14 144/94 (111) 98 Room Air I&O- Last 24 Hours up to 6 AM 12/10/19 06:00 Intake Total 880 ml Output Total 400 ml Balance 480 ml RUPESH KING PA-C Dec 10, 2019 10:48
[2019-12-10 14:00] VITALS: BP 128/65
--- NOTE | 2019-12-10 19:51 | IPNPDOC ---
PM&R Progress Note DATE OF SERVICE: Dec 10, 2019 Inspector Integrated Circuits Progress Note Subjective: Patient reporting at night his left thigh aches and he is interested in trying gabapentin. REVIEW OF SYSTEMS: The following is a completed review of systems and has been reviewed. Review of systems otherwise unremarkable. PAIN: Patient self reports minimal left hip pain EYES: No recent vision changes EARS, NOSE, & THROAT: + dysphagia CARDIOVASCULAR: Denies chest pain or palpitations PULMONARY: Denies shortness of breath GASTROINTESTINAL: Denies constipation/diarrhea GENITOURINARY: denies dysuria MUSCULOSKELETAL: LLE weakness NEUROLOGICAL:denies tremor or paresthesias HEMATOLOGICAL: denies easy bruising SKIN: left hip incision PSYCHIATRIC: Unremarkable All other review of systems found to be negative. PHYSICAL EXAMINATION: VITAL SIGNS: Please see below. GENERAL: Pleasant and cooperative. No acute distress. HEENT: PERRL. Extraocular movements intact. Clear conjunctiva, mild left sided facial droop and tongue slightly deviates toward left CARDIOVASCULAR: Regular rate and rhythm. No murmurs, rubs, or gallops LUNGS: Clear to auscultation bilaterally. No wheezes. No rhonchi ABDOMEN: Soft, nontender, nondistended. Positive bowel sounds. Normal active bowel sounds NEUROLOGICAL: Alert and oriented times three. Cranial nerves II through XII g rossly intact. Sensation grossly intact in all 4 limbs including left foot first web space EXTREMITIES: 5\5 strength bilateral upper extremities. 5\5 strength right lower extremity. 5/5 strength in left ankle DF/EHL, PF, >3/5 hip flexion and knee extension (limited due to surgery) (-) edema SKIN: left anterior hip incision without induration/ecchymosis/erythema ASSESSMENT:84-year-old M with past medical history of CVA and CKD who presents status post left hip bladimir-arthroplasty. PLAN: 1. 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 Neuro: hx of CVA with residual dysphagia 3. Cardio: pmh HTN c/u hydralazine and labetolol qHS- medicine consulted to assist in management 4. Resp: Encourage incentive spirometry and monitor for infection 5. Ortho: s/p left hip fracture with anterior approach hemiarthroplasty- maintain anterior hip precautions for 6 weeks total, f/u Dr. uHnt on d/c 6. 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 : monitor PVRs 8. DVT ppx: Eliquis and TEDs 9. Endo: hx of DM c/u ISS 10. GI ppx: omeprazole 11. Pain: Tylenol changed to standing, will add Gabapentin 100mg qHS (d/c tramadol as not taking it) 12. Dispo: TBD Allergies Coded Allergies: No Known Allergies (Unverified , 06/01/17) Vital Signs Vital Signs Date Time Temp Pulse Resp B/P (MAP) Pulse Ox O2 Delivery O2 Flow Rate FiO2 12/10/19 14:00 97.6 68 16 128/65 (86) 99 Room Air Laboratory Data CBC/BMP Laboratory Tests 12/10/19 06:50 Labs 24H Laboratory Tests 2 12/10/19 05:04: Bedside Glucose (Misc Panel) 120H 12/10/19 06:50: Immature Granulocyte % (Auto) 0.3, Neutrophils (%) (Auto) 67.5H, Lymphocytes (%) (Auto) 18.0L, Monocytes (%) (Auto) 8.8H, Eosinophils (%) (Auto) 5.1H, Basophils (%) (Auto) 0.3, Neutrophils # (Auto) 4.1, Lymphocytes # (Auto) 1.1L, Monocytes # (Auto) 0.5, Eosinophils # (Auto) 0.3, Basophils # (Auto) 0.0, Nucleated Red Blood Cells % (auto) 0.0, Anion Gap 6L, Glomerular Filtration Rate 34.3L, Calcium Level 9.2 12/10/19 11:31: Bedside Glucose (Misc Panel) 102 12/10/19 16:45: Bedside Glucose (Misc Panel) 84 Current Medications Current Medications Current Medications Medications (Trade) Dose Ordered Sig/Iram Route PRN Reason Start Time Stop Time Status Last Admin Dose Admin Acetaminophen (Tylenol Tab) 1,000 mg TID PO 12/04/19 21:00 12/06/19 12:50 DC 12/06/19 09:19 Acetaminophen (Tylenol Tab) 1,000 mg TID PO 12/06/19 16:00 12/10/19 16:57 Albuterol/ Ipratropium (Duoneb (Ipr 0.5mg/Alb 2.5mg)) 3 ml RTID NEB 12/04/19 20:00 12/10/19 19:27 Allopurinol (Zyloprim) 150 mg DAILY PO 12/05/19 09:00 12/10/19 08:34 Apixaban (Eliquis) 2.5 mg BID PO 12/04/19 21:00 12/10/19 08:33 Bisacodyl (Dulcolax Suppository) 10 mg DAILYPRN PRN [place] CONSTIPATION 12/04/19 18:30 Cyanocobalamin (Vitamin B12) 250 mcg DAILY PO 12/05/19 09:00 12/10/19 08:33 Dextrose (Dextrose 50%) 25 ml ASDIRECTED PRN IV SEE LABEL COMMENTS 12/04/19 18:30 Docusate Sodium (Colace) 100 mg BID PO 12/04/19 21:00 12/09/19 20:31 Dorzolamide/ Timolol (Cosopt Ocumeter Plus) 1 drop BID OU 12/04/19 21:00 12/10/19 08:36 Ferrous Sulfate (Ferrous Sulfate) 325 mg DAILY PO 12/05/19 09:00 12/10/19 08:34 Folic Acid (Folic Acid) 1 mg DAILY PO 12/05/19 09:00 12/10/19 08:32 Gemfibrozil (Lopid) 300 mg BID@0730,1730 PO 12/05/19 07:30 12/10/19 16:57 Glucagon (Glucagon) 1 mg ASDIRECTED PRN SC SEE LABEL COMMENTS 12/04/19 18:30 Glucose (Glucose) 16 GM ASDIRECTED PRN PO SEE LABEL COMMENTS 12/04/19 18:30 Home Med (Med Rec Complete!) ASDIRECTED XX 12/04/19 23:00 12/04/19 23:13 DC Hydralazine HCl (Apresoline) 50 mg QHS PO 12/04/19 21:00 12/08/19 20:37 Insulin Human Lispro (HumaLOG INSULIN) SEE PROTOCOL TABLE AC SC 12/05/19 07:30 12/10/19 11:55 Insulin Human Lispro (HumaLOG INSULIN) SEE PROTOCOL TABLE QHS SC 12/04/19 21:00 Labetalol HCl (Normodyne, Trandate) 200 mg QHS PO 12/04/19 21:00 12/05/19 00:24 Latanoprost (Xalatan 0.005% Op Soln) 1 drop QHS OU 12/04/19 21:00 12/09/19 20:32 Lidocaine/ Diphenhydr/Alum/ Mg/Simeth (Magic Mouthwash) 5ml AC SSP 12/07/19 07:30 12/10/19 16:57 Magnesium Oxide (Mag-Ox) 400 mg DAILY PO 12/05/19 09:00 12/10/19 08:32 Meclizine HCl (Antivert) 25 mg BIDP PRN PO DIZZINESS 12/04/19 18:30 Omeprazole (PriLOSEC) 40 mg DAILY PO 12/05/19 09:00 12/10/19 08:35 Ondansetron HCl (Zofran) 4 mg Q6HP PRN PO NAUSEA 12/04/19 18:30 Pravastatin Sodium (Pravachol) 80 mg QHS PO 12/04/19 21:00 12/09/19 20:30 Senna (Senokot) 1 tab QHS PO 12/04/19 21:00 12/09/19 20:30 Tramadol HCl (Ultram) 50 mg Q6HP PRN PO MODERATE PAIN (PS 5-7) 12/04/19 18:30 12/05/19 09:13 Vitamin D (Vitamin D) 1,000 units DAILY PO 12/05/19 09:00 12/10/19 08:32 EAMON COLEMAN MD Dec 10, 2019 19:51
[2019-12-10] MEDS: LABETALOL 200 MG TAB PO SCH (20:48)
[2019-12-10] MEDS: SENNA 8.6 MG TAB (SENOKOT) PO SCH (20:54)
[2019-12-10] MEDS: GABAPENTIN 100 MG CAP PO SCH (20:54)
[2019-12-10] MEDS: PRAVASTATIN 20 MG TAB PO SCH (20:54)
[2019-12-10] MEDS: **hydrALAZINE** 50 MG TAB PO SCH (20:54)
[2019-12-10] MEDS: LATANOPROST 0.005% OPHTH SOLN 2.5 ML OU SCH (20:55)
[2019-12-10 22:00] VITALS: BP 133/62
[2019-12-11 06:00] VITALS: BP 148/67
[2019-12-11] MEDS: MAGIC MOUTHWASH SUSPENSION BTL SSP SCH ×3 (08:30→17:12)
[2019-12-11] MEDS: FOLIC ACID 1 MG TAB PO SCH (08:33)
[2019-12-11] MEDS: allopurinoL 300 MG TAB PO SCH (08:33)
[2019-12-11] MEDS: APIXABAN 2.5 MG TAB (ELIQUIS) PO SCH ×2 (08:33→22:16)
[2019-12-11] MEDS: MAGNESIUM OXIDE 400 MG TAB (MAG-OX) PO SCH (08:33)
[2019-12-11] MEDS: VITAMIN D 1,000 INTERNATIONAL UNITS TABLET PO SCH (08:33)
[2019-12-11] MEDS: CYANOCOBALAMIN 250 MCG TABLET PO SCH (08:33)
[2019-12-11] MEDS: FERROUS SULFATE 325MG TAB PO SCH (08:34)
[2019-12-11] MEDS: OMEPRAZOLE 20 MG CAP PO SCH (08:34)
[2019-12-11] MEDS: gemfibroziL 600 MG TAB PO SCH ×2 (08:34→17:12)
[2019-12-11] MEDS: DOCUSATE SODIUM 100 MG CAP PO SCH ×2 (08:34→21:00)
[2019-12-11] MEDS: ACETAMINOPHEN 500 MG TAB PO SCH ×3 (08:35→22:18)
[2019-12-11] MEDS: COSOPT OCUMETER PLUS 10ML (DORZOLAMIDE/TIMOLOL) OU SCH ×2 (08:35→22:20)
[2019-12-11] MEDS: HumaLOG INSULIN (NovoLOG) PER UNIT SC SCH ×4 (08:35→21:00)
[2019-12-11] MEDS: REMEDY PHYTOPLEX Z-GUARD PASTE 113GM TUBE (FROM STOREROOM PRODUCT) TOP SCH ×3 (08:36→21:00)
[2019-12-11] MEDS: IPRATROPIUM 0.5MG/ALBUTEROL 2.5MG INH SOL UD 3ML (DUONEB)(J7620) NEB SCH ×3 (09:08→19:54)
[2019-12-11 14:00] VITALS: BP 140/61
--- NOTE | 2019-12-11 16:17 | IPNPDOC ---
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 he reports his iron tab is being crushed in the morning and the particles sit on his tongue. REVIEW OF SYSTEMS: The following is a completed review of systems and has been reviewed. Review of systems otherwise unremarkable. PAIN: Patient self reports minimal left hip pain EYES: No recent vision changes EARS, NOSE, & THROAT: + dysphagia (improving) CARDIOVASCULAR: Denies chest pain or palpitations PULMONARY: Denies shortness of breath GASTROINTESTINAL: Denies constipation/diarrhea GENITOURINARY: denies dysuria MUSCULOSKELETAL: LLE weakness NEUROLOGICAL:denies tremor or paresthesias HEMATOLOGICAL: denies easy bruising SKIN: left hip incision PSYCHIATRIC: Unremarkable All other review of systems found to be negative. PHYSICAL EXAMINATION: VITAL SIGNS: Please see below. GENERAL: Pleasant and cooperative. No acute distress. HEENT: PERRL. Extraocular movements intact. Clear conjunctiva, mild left sided facial droop and tongue slightly deviates toward left (brown/black discoloration) CARDIOVASCULAR: Regular rate and rhythm. No murmurs, rubs, or gallops LUNGS: Clear to auscultation bilaterally. No wheezes. No rhonchi ABDOMEN: Soft, nontender, nondistended. Positive bowel sounds. Normal active bowel sounds NEUROLOGICAL: Alert and oriented times three. Cranial nerves II through XII grossly intact. Sensation grossly intact in all 4 limbs including left foot first web space EXTREMITIES: 5\5 strength bilateral upper extremities. 5\5 strength right lower extremity. 5/5 strength in left ankle DF/EHL, PF, >3/5 hip flexion and knee extension (limited due to surgery) (-) edema SKIN: left anterior hip incision without induration/ecchymosis/erythema ASSESSMENT:84-year-old M with past medical history of CVA and CKD who presents status post left hip bladimir-arthroplasty. PLAN: 1. 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 Neuro: hx of CVA with residual dysphagia 3. Cardio: pmh HTN c/u hydralazine and labetolol qHS- medicine consulted to assist in management 4. Resp: Encourage incentive spirometry and monitor for infection 5. Ortho: s/p left hip fracture with anterior approach hemiarthroplasty- maintain anterior hip precautions for 6 weeks total, f/u Dr. Hunt on d/c 6. 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 : monitor PVRs 8. DVT ppx: Eliquis and TEDs 9. Endo: hx of DM c/u ISS 10. GI ppx: omeprazole 11. Pain: c/u Tylenol standing and Gabapentin 100mg qHS (d/c tramadol as not taking it) 12. Hyperkalemia- will give 1x dose of Kayexalate 12. Dispo: 12-13-19 to home Allergies Coded Allergies: No Known Allergies (Unverified , 06/01/17) Vital Signs Vital Signs Date Time Temp Pulse Resp B/P (MAP) Pulse Ox O2 Delivery O2 Flow Rate FiO2 12/11/19 14:00 97.4 65 18 140/61 (87) 95 Room Air Laboratory Data Labs 24H Laboratory Tests 2 12/10/19 16:45: Bedside Glucose (Misc Panel) 84 12/10/19 20:31: Bedside Glucose (Misc Panel) 157H 12/11/19 05:49: Bedside Glucose (Misc Panel) 116H 12/11/19 11:27: Bedside Glucose (Misc Panel) 79L Current Medications Current Medications Current Medications Medications (Trade) Dose Ordered Sig/Iram Route PRN Reason Start Time Stop Time Status Last Admin Dose Admin Acetaminophen (Tylenol Tab) 1,000 mg TID PO 12/04/19 21:00 12/06/19 12:50 DC 12/06/19 09:19 Acetaminophen (Tylenol Tab) 1,000 mg TID PO 12/06/19 16:00 12/11/19 08:35 Albuterol/ Ipratropium (Duoneb (Ipr 0.5mg/Alb 2.5mg)) 3 ml RTID NEB 12/04/19 20:00 12/11/19 14:44 Allopurinol (Zyloprim) 150 mg DAILY PO 12/05/19 09:00 3/10/20 08:33 Apixaban (Eliquis) 2.5 mg BID PO 12/04/19 21:00 12/11/19 08:33 Bisacodyl (Dulcolax Suppository) 10 mg DAILYPRN PRN [place] CONSTIPATION 12/04/19 18:30 Cyanocobalamin (Vitamin B12) 250 mcg DAILY PO 12/05/19 09:00 12/11/19 08:33 Dextrose (Dextrose 50%) 25 ml ASDIRECTED PRN IV SEE LABEL COMMENTS 12/04/19 18:30 Docusate Sodium (Colace) 100 mg BID PO 12/04/19 21:00 12/11/19 08:34 Dorzolamide/ Timolol (Cosopt Ocumeter Plus) 1 drop BID OU 12/04/19 21:00 12/11/19 08:35 Ferrous Sulfate (Ferrous Sulfate) 325 mg DAILY PO 12/05/19 09:00 12/11/19 16:11 DC 12/11/19 08:34 Folic Acid (Folic Acid) 1 mg DAILY PO 12/05/19 09:00 12/11/19 08:33 Gabapentin (Neurontin) 100 mg QHS PO 12/10/19 21:00 12/10/19 20:54 Gemfibrozil (Lopid) 300 mg BID@0730,1730 PO 12/05/19 07:30 12/11/19 08:34 Glucagon (Glucagon) 1 mg ASDIRECTED PRN SC SEE LABEL COMMENTS 12/04/19 18:30 Glucose (Glucose) 16 GM ASDIRECTED PRN PO SEE LABEL COMMENTS 12/04/19 18:30 Home Med (Med Rec Complete!) ASDIRECTED XX 12/04/19 23:00 12/04/19 23:13 DC Hydralazine HCl (Apresoline) 50 mg QHS PO 12/04/19 21:00 12/10/19 20:54 Insulin Human Lispro (HumaLOG INSULIN) SEE PROTOCOL TABLE AC SC 12/05/19 07:30 12/11/19 08:35 Insulin Human Lispro (HumaLOG INSULIN) SEE PROTOCOL TABLE QHS SC 12/04/19 21:00 Labetalol HCl (Normodyne, Trandate) 200 mg QHS PO 12/04/19 21:00 12/05/19 00:24 Latanoprost (Xalatan 0.005% Op Soln) 1 drop QHS OU 12/04/19 21:00 12/10/19 20:55 Lidocaine/ Diphenhydr/Alum/ Mg/Simeth (Magic Mouthwash) 5ml AC SSP 12/07/19 07:30 12/11/19 12:08 Magnesium Oxide (Mag-Ox) 400 mg DAILY PO 12/05/19 09:00 12/11/19 08:33 Meclizine HCl (Antivert) 25 mg BIDP PRN PO DIZZINESS 12/04/19 18:30 Omeprazole (PriLOSEC) 40 mg DAILY PO 12/05/19 09:00 12/11/19 08:34 Ondansetron HCl (Zofran) 4 mg Q6HP PRN PO NAUSEA 12/04/19 18:30 Pravastatin Sodium (Pravachol) 80 mg QHS PO 12/04/19 21:00 12/10/19 20:54 Senna (Senokot) 1 tab QHS PO 12/04/19 21:00 12/10/19 20:54 Tramadol HCl (Ultram) 50 mg Q6HP PRN PO MODERATE PAIN (PS 5-7) 12/04/19 18:30 12/10/19 19:52 DC 12/05/19 09:13 Vitamin D (Vitamin D) 1,000 units DAILY PO 12/05/19 09:00 12/11/19 08:33 EAMON COLEMAN MD Dec 11, 2019 16:17
[2019-12-11 21:00] VITALS: BP 139/62
[2019-12-11] MEDS: LABETALOL 200 MG TAB PO SCH (21:00)
[2019-12-11] MEDS: SENNA 8.6 MG TAB (SENOKOT) PO SCH (21:00)
[2019-12-11] MEDS: GABAPENTIN 100 MG CAP PO SCH (22:16)
[2019-12-11] MEDS: **hydrALAZINE** 50 MG TAB PO SCH (22:17)
[2019-12-11] MEDS: PRAVASTATIN 20 MG TAB PO SCH (22:18)
[2019-12-11] MEDS: LATANOPROST 0.005% OPHTH SOLN 2.5 ML OU SCH (22:19)
[2019-12-12 06:00] VITALS: BP 146/65
[2019-12-12] MEDS: IPRATROPIUM 0.5MG/ALBUTEROL 2.5MG INH SOL UD 3ML (DUONEB)(J7620) NEB SCH ×3 (07:52→19:42)
[2019-12-12] MEDS: gemfibroziL 600 MG TAB PO SCH ×2 (07:59→16:39)
[2019-12-12] MEDS: HumaLOG INSULIN (NovoLOG) PER UNIT SC SCH ×4 (07:59→21:00)
[2019-12-12] MEDS: MAGIC MOUTHWASH SUSPENSION BTL SSP SCH ×3 (07:59→16:39)
[2019-12-12] MEDS: VITAMIN D 1,000 INTERNATIONAL UNITS TABLET PO SCH (07:59)
[2019-12-12] MEDS: OMEPRAZOLE 20 MG CAP PO SCH (08:00)
[2019-12-12] MEDS: FOLIC ACID 1 MG TAB PO SCH (08:00)
[2019-12-12] MEDS: APIXABAN 2.5 MG TAB (ELIQUIS) PO SCH ×2 (08:00→22:13)
[2019-12-12] MEDS: allopurinoL 300 MG TAB PO SCH (08:00)
[2019-12-12] MEDS: MAGNESIUM OXIDE 400 MG TAB (MAG-OX) PO SCH (08:00)
[2019-12-12] MEDS: DOCUSATE SODIUM 100 MG CAP PO SCH ×2 (08:00→21:00)
[2019-12-12] MEDS: CYANOCOBALAMIN 250 MCG TABLET PO SCH (08:00)
[2019-12-12] MEDS: ACETAMINOPHEN 500 MG TAB PO SCH ×3 (08:01→22:13)
[2019-12-12] MEDS: COSOPT OCUMETER PLUS 10ML (DORZOLAMIDE/TIMOLOL) OU SCH ×2 (08:01→22:14)
[2019-12-12] MEDS: REMEDY PHYTOPLEX Z-GUARD PASTE 113GM TUBE (FROM STOREROOM PRODUCT) TOP SCH ×3 (08:01→21:00)
[2019-12-12 14:00] VITALS: BP 138/63
[2019-12-12 14:00] LABS: BASO % 0.5 % (0.0-1.0); EOS # 0.3 10^3/uL (0.0-0.5); EOS % 5.5 % (0.0-3.0); HEMATOCRIT 28.6 % (42.0-52.0); HEMOGLOBIN 9.3 g/dl (13.5-17.5); LYMPH # 0.9 10^3/uL (1.5-5.0); LYMPH % 15.8 % (24.0-44.0); MEAN CORPUSCULAR HEMOGLOBIN 31.7 pg (27.0-33.0); MEAN CORPUSCULAR HGB CONC 32.5 g/dl (32.0-36.5); MEAN CORPUSCULAR VOLUME 97.6 fl (80.0-96.0); MONO # 0.6 10^3/uL (0.0-0.8); MONO % 9.2 % (0.0-5.0); NEUTROPHILS # 4.1 10^3/uL (1.5-8.5); NEUTROPHILS % 68.8 % (36.0-66.0); PLATELET COUNT, AUTOMATED 238 10^3/uL (150-450); RED BLOOD COUNT 2.93 10^6/uL (4.30-6.10)
[2019-12-12 14:32] LABS: CALCIUM LEVEL 9.1 MG/DL (8.8-10.2); CREATININE FOR GFR 2.34 MG/DL (0.70-1.30); GLOMERULAR FILTRATION RATE 28.3 (>35); POTASSIUM SERUM 5.3 MEQ/L (3.5-5.1)
[2019-12-12] MEDS ORDERED: GEMF600T5 PO (15:44)
[2019-12-12] MEDS ORDERED: ZYLO300T6 PO (15:44)
[2019-12-12] MEDS ORDERED: PRAV1TAB39 PO (15:44)
[2019-12-12] MEDS ORDERED: LABE20TAB PO (15:44)
[2019-12-12] MEDS ORDERED: ELIQ2.5T PO (15:44)
[2019-12-12] MEDS ORDERED: FOLI1TAB11 PO (15:44)
[2019-12-12] MEDS ORDERED: GABA-1171 PO (15:44)
[2019-12-12] MEDS ORDERED: HYDR50TA PO (15:44)
[2019-12-12] MEDS ORDERED: SOD POLYSTYRENE SULFONATE SUSP 15 GM/60 ML UD PO ONE (15:45)
[2019-12-12 17:15] LABS: HEPATITIS B SURFACE ANTIGEN NEGATIVE (NEGATIVE)
[2019-12-12 17:17] LABS: HIV SCREEN CENTAUR SOURCE NEGATIVE (NEGATIVE)
[2019-12-12 20:00] VITALS: BP 132/62
[2019-12-12] MEDS: SENNA 8.6 MG TAB (SENOKOT) PO SCH (21:00)
[2019-12-12 22:12] VITALS: BP 147/66
[2019-12-12] MEDS: PRAVASTATIN 20 MG TAB PO SCH (22:12)
[2019-12-12] MEDS: GABAPENTIN 100 MG CAP PO SCH (22:12)
[2019-12-12] MEDS: LABETALOL 200 MG TAB PO SCH (22:12)
[2019-12-12] MEDS: **hydrALAZINE** 50 MG TAB PO SCH (22:13)
[2019-12-12] MEDS: LATANOPROST 0.005% OPHTH SOLN 2.5 ML OU SCH (22:14)
[2019-12-13 06:00] VITALS: BP 125/60
[2019-12-13] MEDS: IPRATROPIUM 0.5MG/ALBUTEROL 2.5MG INH SOL UD 3ML (DUONEB)(J7620) NEB SCH (07:41)
[2019-12-13 08:19] LABS: CALCIUM LEVEL 8.6 MG/DL (8.8-10.2); CREATININE FOR GFR 2.44 MG/DL (0.70-1.30); GLOMERULAR FILTRATION RATE 26.9 (>35); POTASSIUM SERUM 4.4 MEQ/L (3.5-5.1)
[2019-12-13] MEDS: MAGIC MOUTHWASH SUSPENSION BTL SSP SCH (08:35)
[2019-12-13] MEDS: gemfibroziL 600 MG TAB PO SCH (08:35)
[2019-12-13] MEDS: HumaLOG INSULIN (NovoLOG) PER UNIT SC SCH (08:35)
[2019-12-13] MEDS: FOLIC ACID 1 MG TAB PO SCH (08:36)
[2019-12-13] MEDS: VITAMIN D 1,000 INTERNATIONAL UNITS TABLET PO SCH (08:36)
[2019-12-13] MEDS: APIXABAN 2.5 MG TAB (ELIQUIS) PO SCH (08:36)
[2019-12-13] MEDS: MAGNESIUM OXIDE 400 MG TAB (MAG-OX) PO SCH (08:36)
[2019-12-13] MEDS: CYANOCOBALAMIN 250 MCG TABLET PO SCH (08:36)
[2019-12-13] MEDS: allopurinoL 300 MG TAB PO SCH (08:36)
[2019-12-13] MEDS: DOCUSATE SODIUM 100 MG CAP PO SCH (08:37)
[2019-12-13] MEDS: ACETAMINOPHEN 500 MG TAB PO SCH (08:37)
[2019-12-13] MEDS: OMEPRAZOLE 20 MG CAP PO SCH (08:37)
[2019-12-13] MEDS: REMEDY PHYTOPLEX Z-GUARD PASTE 113GM TUBE (FROM STOREROOM PRODUCT) TOP SCH (08:38)
[2019-12-13] MEDS: COSOPT OCUMETER PLUS 10ML (DORZOLAMIDE/TIMOLOL) OU SCH (08:38)
[2019-12-14 09:01] LABS: HEP C VIRUS AB INDEX SOURCE PT < 0.0 INDEX (0.0-0.8)
== END 2019-12-13 12:10 | disposition home health service (06) | DRG 561 ==
LOC: M PM&R 21:05
PROVIDERS: ADMIT Physical Medicine & Rehabilitation; ATTEND Physical Medicine & Rehabilitation
DX: S72.002D Fracture of unspecified part of neck of left femur, subsequent encounter for closed fracture with routine healing (principal); Z96.642 Presence of left artificial hip joint; I69.391 Dysphagia following cerebral infarction; I12.9 Hypertensive chronic kidney disease with stage 1 through stage 4 chronic kidney disease, or unspecified chronic kidney disease; Z79.899 Other long term (current) drug therapy; E11.9 Type 2 diabetes mellitus without complications; E78.5 Hyperlipidemia, unspecified; N18.9 Chronic kidney disease, unspecified; E87.5 Hyperkalemia; W18.30XD Fall on same level, unspecified, subsequent encounter; Y92.9 Unspecified place or not applicable

== ENCOUNTER → 2020-01-16 | Outpatient (REF) | payer MEDICARE ==
[~2020-01-16] MED LIST changes: +ACET1TAB55 PO; +ALBU83IN NEB; +ALLO100T PO; +BISA10SU4 PR; +COSO1SOL3 OU; +DOCU100C17 PO; +ELIQ2.5T PO; +FERR325T3 PO; +GABA-1171 PO; +HYDR-3911 PO; +HYDR50TA PO; +LABE20TAB PO; +MECL-86 PO; +MILKSUS3 PO; +NOVOINJ SC; +POTA20EL PO; +PRAV1TAB39 PO; +PRAV80TA2 PO; +PROM25TA12 PO; +TRAM50TA2 PO; +VITA250T50 PO; +VITAD1000T PO; +XALA0.007 OU; +ZYLO300T6 PO
[2020-01-16 17:49] LABS: PERCENT SATURATION 24.4 % (19.7-50.0)
== END ==
LOC: M LAB REF 16:53
PROVIDERS: ATTEND Internal Medicine Nephrology
DX: D50.9 Iron deficiency anemia, unspecified (principal)

== ENCOUNTER → 2021-01-20 | Outpatient (REF) | payer MEDICARE ==
[~2021-01-20] MED LIST changes: +D31000TA2 PO; +LABE100T4 PO; -LABE10TAB PO; -VITA250T50 PO; +VITA250T7 PO; -VITAD1000T PO
[2021-01-20 19:22] LABS: PERCENT SATURATION 34.2 % (19.7-50.0)
== END ==
LOC: M LAB REF 17:24
PROVIDERS: ATTEND Nurse Practitioner Family
DX: D50.9 Iron deficiency anemia, unspecified (principal)

== ENCOUNTER → 2021-04-24 | Outpatient (REF) | payer MEDICARE ==
[~2021-04-24] MED LIST changes: +OMEP40CA4 PO; -OMEP40CA97 PO
== END ==
LOC: M LAB REF 17:59
PROVIDERS: ATTEND Nurse Practitioner Family
DX: N18.9 Chronic kidney disease, unspecified (principal); D63.1 Anemia in chronic kidney disease

== ENCOUNTER → 2021-12-17 | Outpatient (REF) | payer MEDICARE ==
[~2021-12-17] MED LIST changes: -D31000TA2 PO; +VITA100093 PO
[2021-12-17 18:38] LABS: PERCENT SATURATION 13.3 % (19.7-50.0)
== END ==
LOC: M LAB REF 16:44
PROVIDERS: ATTEND Nurse Practitioner Family
DX: D50.9 Iron deficiency anemia, unspecified (principal)

== ENCOUNTER 2021-12-28 08:50 | Outpatient (CLI) | payer MEDICARE ==
[~2021-12-28] VITALS: Ht 165.1 cm; Wt 63.6 kg
[~2021-12-28 08:50] MED LIST changes: +ALBUTEROL SULFATE 2.5 MG/0.5 ML INH NEB SOLN INH PRN; +EPINEPHrine INJ 1 MG/ML 1ML AMP IM PRN; +IRON SUCROSE 25 MG in NS 25 ML IV ONE; +IRON SUCROSE 475 MG in NS 250 ML IV ONE; +NS 1,000 ML IV SCH; +diphenhydrAMINE 50MG/ML VIAL (J1200) IV PRN; +methylPREDNISolone 125MG 2ML VIAL IV PRN
[2021-12-28 09:18] VITALS: BP 182/77
[2021-12-28 11:14] VITALS: BP 163/70
[2021-12-28 12:00] VITALS: BP 158/72
[2021-12-28 13:00] VITALS: BP 162/85
[2021-12-28 14:00] VITALS: BP 123/79
[2021-12-28 15:00] VITALS: BP 148/65
== END 2021-12-28 15:00 | disposition home or self-care (01) ==
LOC: M INFU 08:50
PROVIDERS: ATTEND Internal Medicine Nephrology
DX: D50.9 Iron deficiency anemia, unspecified (principal)
CPT/HCPCS: 96365; 96366; J1756

== ENCOUNTER 2022-05-08 18:18 | Inpatient (IN) | payer MEDICARE ==
[~2022-05-08] VITALS: Ht 165.1 cm; Wt 59.8 kg
[~2022-05-08 18:18] MED LIST changes: +ALBU2.5V10 NEB; -ALBU83IN NEB; -ALBUTEROL SULFATE 2.5 MG/0.5 ML INH NEB SOLN INH PRN; -EPINEPHrine INJ 1 MG/ML 1ML AMP IM PRN; -IRON SUCROSE 25 MG in NS 25 ML IV ONE; -IRON SUCROSE 475 MG in NS 250 ML IV ONE; -LABE100T4 PO; +LABE100T6 PO; -NS 1,000 ML IV SCH; -diphenhydrAMINE 50MG/ML VIAL (J1200) IV PRN; -methylPREDNISolone 125MG 2ML VIAL IV PRN
[2022-05-08] MEDS ORDERED: ISOVUE-370 76% 100ML VIAL As Ordered ONE (18:30)
[2022-05-08] MEDS ORDERED: [UNRECOGNIZED DRUG - CODE] (18:32)
[2022-05-08] MEDS ORDERED: HYDR10TAB PO (18:32)
[2022-05-08] MEDS ORDERED: ANTI2TAB16 PO (18:32)
[2022-05-08] MEDS ORDERED: BIMA01SOL OU (18:32)
[2022-05-08] MEDS ORDERED: DORZ2SOL5 OU (18:32)
[2022-05-08] MEDS ORDERED: OMEP40CA5 PO (18:32)
[2022-05-08] MEDS ORDERED: ISOS10TA9 PO (18:32)
[2022-05-08] MEDS ORDERED: LEVO50TA5 PO (18:32)
[2022-05-08] MEDS ORDERED: METO1TAB32 PO (18:32)
[2022-05-08] MEDS ORDERED: ATOR40TA75 PO (18:32)
[2022-05-08 18:57] LABS: BASO % 0.4 % (0.0-1.0); EOS # 0.3 10^3/uL (0.0-0.5); EOS % 2.7 % (0.0-3.0); HEMATOCRIT 37.6 % (42.0-52.0); HEMOGLOBIN 11.8 g/dl (13.5-17.5); LYMPH # 1.7 10^3/uL (1.5-5.0); LYMPH % 16.8 % (24.0-44.0); MEAN CORPUSCULAR HEMOGLOBIN 29.5 pg (27.0-33.0); MEAN CORPUSCULAR HGB CONC 31.4 g/dl (32.0-36.5); MONO # 0.9 10^3/uL (0.0-0.8); MONO % 8.9 % (2.0-8.0); NEUTROPHILS # 7.2 10^3/uL (1.5-8.5); NEUTROPHILS % 70.9 % (36.0-66.0); PLATELET COUNT, AUTOMATED 176 10^3/uL (150-450); WHITE BLOOD COUNT 10.1 10^3/uL (4.0-10.0)
[2022-05-08 19:21] LABS: INR 0.94
[2022-05-08 19:22] LABS: PARTIAL THROMBOPLASTIN TIME 39.8 SECONDS (25.9-37.0)
[2022-05-08 19:39] LABS: ALBUMIN 4.1 GM/DL (3.2-5.2); BILIRUBIN,DIRECT 0.1 MG/DL (0.0-0.2); BILIRUBIN,TOTAL 0.3 MG/DL (0.2-1.0); TOTAL PROTEIN 7.6 GM/DL (6.4-8.2)
[2022-05-08 19:41] LABS: CK-MB VALUE MASS 2.5 NG/ML (<3.6); MB/CK RELATIVE INDEX 1.14 (< OR =4)
[2022-05-08 20:13] LABS: CALCIUM LEVEL 9.3 MG/DL (8.8-10.2); CREATININE FOR GFR 2.85 MG/DL (0.70-1.30); GLOMERULAR FILTRATION RATE 22.4 (>35); POTASSIUM SERUM 5.4 MEQ/L (3.5-5.1)
[2022-05-08 20:19] LABS: RSV AMPLIFICATION NEGATIVE (NEGATIVE)
[2022-05-08] MEDS ORDERED: VITA500T41 PO (20:50)
[2022-05-08] MEDS ORDERED: MAGO400T2 PO (20:50)
[2022-05-08] MEDS ORDERED: ALLO300T2 PO (20:50)
[2022-05-08] MEDS ORDERED: SODI15SS PO (20:50)
[2022-05-08] MEDS ORDERED: ASPI81TA26 PO (20:50)
[2022-05-08] MEDS ORDERED: CINN500C15 PO (20:50)
[2022-05-08] MEDS ORDERED: PROC20004 IJ (20:50)
[2022-05-08] MEDS ORDERED: HOME MED LIST COMPLETE! XX SCH (20:55)
[2022-05-08] MEDS ORDERED: ASPIRIN 81 MG CHEW TABLET PO ONE (21:55)
[2022-05-08] MEDS ORDERED: SOD POLYSTYRENE SULFONATE SUSP 15GM 60ML UD PO ONE (22:20)
[2022-05-08] MEDS: METOPROLOL SUCC *XL* 25MG TAB (TopROL *XL*) PO SCH (23:00)
[2022-05-08] MEDS: FERROUS SULFATE 325MG TAB PO SCH (23:00)
[2022-05-08] MEDS: APIXABAN 2.5 MG TAB (ELIQUIS) PO SCH (23:00)
[2022-05-08] MEDS: ATORVASTATIN 20 MG TAB PO SCH (23:00)
[2022-05-08] MEDS: **hydrALAZINE** 10 MG TAB PO SCH (23:15)
[2022-05-09 00:22] LABS: PROTHROMBIN TIME 13.6 SECONDS (12.7-14.5)
[2022-05-09 00:46] LABS: MB/CK RELATIVE INDEX 1.5 (< OR =4)
[2022-05-09 01:41] VITALS: BP 178/82
[2022-05-09] MEDS: ISOSORBIDE DIN (ISORDIL) 10MG TAB PO SCH ×4 (01:56→21:07)
[2022-05-09] MEDS ORDERED: DEXTROSE 50% 50 ML SYRINGE IV PRN (02:20)
[2022-05-09] MEDS ORDERED: GLUCOSE 4GM CHEW TABLET PO PRN (02:20)
[2022-05-09] MEDS ORDERED: GLUCAGON INJ 1MG VIAL SC PRN (02:20)
[2022-05-09 04:00] VITALS: BP 126/64
[2022-05-09] MEDS: LEVOTHYROXINE 50MCG TABLET (0.05MG) PO SCH (04:58)
[2022-05-09 07:26] LABS: BASO % 0.4 % (0.0-1.0); EOS # 0.3 10^3/uL (0.0-0.5); EOS % 4.5 % (0.0-3.0); HEMATOCRIT 30.1 % (42.0-52.0); LYMPH # 1.3 10^3/uL (1.5-5.0); LYMPH % 24.2 % (24.0-44.0); MEAN CORPUSCULAR HEMOGLOBIN 29.6 pg (27.0-33.0); MEAN CORPUSCULAR HGB CONC 31.9 g/dl (32.0-36.5); MEAN CORPUSCULAR VOLUME 92.9 fl (80.0-96.0); MONO # 0.5 10^3/uL (0.0-0.8); MONO % 8.9 % (2.0-8.0); NEUTROPHILS # 3.4 10^3/uL (1.5-8.5); NEUTROPHILS % 61.8 % (36.0-66.0); PLATELET COUNT, AUTOMATED 133 10^3/uL (150-450); RED BLOOD COUNT 3.24 10^6/uL (4.30-6.10); WHITE BLOOD COUNT 5.5 10^3/uL (4.0-10.0)
[2022-05-09 07:29] LABS: HEMOGLOBIN 9.6 g/dl (13.5-17.5)
[2022-05-09 07:58] LABS: CALCIUM LEVEL 8.8 MG/DL (8.8-10.2); CREATININE FOR GFR 2.28 MG/DL (0.70-1.30); GLOMERULAR FILTRATION RATE 28.9 (>35); POTASSIUM SERUM 4.6 MEQ/L (3.5-5.1)
[2022-05-09 08:05] LABS: HEMOGLOBIN A1c 6.9 %
[2022-05-09] MEDS: ASPIRIN 81 MG CHEW TABLET PO SCH (08:36)
[2022-05-09] MEDS: COSOPT OCUMETER PLUS 10ML (DORZOLAMIDE/TIMOLOL) OU SCH ×2 (08:37→21:09)
[2022-05-09] MEDS: CYANOCOBALAMIN 500 MCG TAB PO SCH (08:37)
[2022-05-09] MEDS: FERROUS SULFATE 325MG TAB PO SCH ×2 (08:37→21:05)
[2022-05-09] MEDS: FOLIC ACID 1MG TAB PO SCH (08:37)
[2022-05-09] MEDS: VITAMIN D 1,000 INTERNATIONAL UNITS TABLET PO SCH (08:37)
[2022-05-09] MEDS: allopurinoL 300 MG TAB PO SCH (08:37)
[2022-05-09] MEDS: APIXABAN 2.5 MG TAB (ELIQUIS) PO SCH ×2 (08:37→21:06)
[2022-05-09] MEDS: **hydrALAZINE** 10 MG TAB PO SCH ×3 (08:39→21:06)
[2022-05-09 11:54] VITALS: BP 104/56
[2022-05-09 16:00] VITALS: BP 136/64
[2022-05-09 16:37] VITALS: BP 132/62
[2022-05-09 20:00] VITALS: BP 136/68
[2022-05-09] MEDS: METOPROLOL SUCC *XL* 25MG TAB (TopROL *XL*) PO SCH (21:06)
[2022-05-09] MEDS: ATORVASTATIN 20 MG TAB PO SCH (21:06)
[2022-05-10] VITALS: BP 133/61
[2022-05-10 04:00] VITALS: BP 164/71
[2022-05-10] MEDS: LEVOTHYROXINE 50MCG TABLET (0.05MG) PO SCH (06:00)
[2022-05-10 08:00] VITALS: BP 138/70
[2022-05-10 08:31] LABS: BASO % 0.3 % (0.0-1.0); EOS # 0.3 10^3/uL (0.0-0.5); EOS % 4.7 % (0.0-3.0); HEMATOCRIT 31.7 % (42.0-52.0); HEMOGLOBIN 10.1 g/dl (13.5-17.5); LYMPH # 1.2 10^3/uL (1.5-5.0); LYMPH % 17.3 % (24.0-44.0); MEAN CORPUSCULAR HEMOGLOBIN 30.1 pg (27.0-33.0); MEAN CORPUSCULAR HGB CONC 31.9 g/dl (32.0-36.5); MEAN CORPUSCULAR VOLUME 94.3 fl (80.0-96.0); MONO # 0.6 10^3/uL (0.0-0.8); MONO % 8.4 % (2.0-8.0); NEUTROPHILS # 4.7 10^3/uL (1.5-8.5); NEUTROPHILS % 69.2 % (36.0-66.0); PLATELET COUNT, AUTOMATED 131 10^3/uL (150-450); RED BLOOD COUNT 3.36 10^6/uL (4.30-6.10); WHITE BLOOD COUNT 6.8 10^3/uL (4.0-10.0)
[2022-05-10 09:00] VITALS: BP 146/67
[2022-05-10] MEDS: ISOSORBIDE DIN (ISORDIL) 10MG TAB PO SCH (09:00)
[2022-05-10] MEDS: **hydrALAZINE** 10 MG TAB PO SCH (09:00)
[2022-05-10 09:13] LABS: ALBUMIN 3.2 GM/DL (3.2-5.2); BILIRUBIN,TOTAL 0.5 MG/DL (0.2-1.0); CALCIUM LEVEL 8.8 MG/DL (8.8-10.2); CREATININE FOR GFR 2.25 MG/DL (0.70-1.30); GLOMERULAR FILTRATION RATE 29.4 (>35); MAGNESIUM LEVEL 1.6 MG/DL (1.8-2.4); POTASSIUM SERUM 4.2 MEQ/L (3.5-5.1); TOTAL PROTEIN 5.9 GM/DL (6.4-8.2)
[2022-05-10 09:30] VITALS: BP 146/67
[2022-05-10] MEDS: APIXABAN 2.5 MG TAB (ELIQUIS) PO SCH (09:35)
[2022-05-10] MEDS: CYANOCOBALAMIN 500 MCG TAB PO SCH (09:35)
[2022-05-10] MEDS: VITAMIN D 1,000 INTERNATIONAL UNITS TABLET PO SCH (09:35)
[2022-05-10] MEDS: FERROUS SULFATE 325MG TAB PO SCH (09:35)
[2022-05-10] MEDS: FOLIC ACID 1MG TAB PO SCH (09:35)
[2022-05-10] MEDS: ASPIRIN 81 MG CHEW TABLET PO SCH (09:37)
[2022-05-10] MEDS: COSOPT OCUMETER PLUS 10ML (DORZOLAMIDE/TIMOLOL) OU SCH (09:37)
[2022-05-10] MEDS: allopurinoL 300 MG TAB PO SCH (09:37)
[2022-05-10] MEDS ORDERED: MAGNESIUM OXIDE 400MG TAB (MAG-OX) PO ONE (09:40)
[2022-05-10] MEDS ORDERED: ASPI81TA26 PO (09:53)
[2022-05-10] MEDS ORDERED: ATOR1TAB21 PO (09:53)
[2022-05-10] MEDS ORDERED: HYDR10TAB PO (09:53)
[2022-05-10 12:00] VITALS: BP 146/67
== END 2022-05-10 15:32 | disposition home health service (06) | DRG 68 ==
LOC: M ED 18:18 → M ED INP 22:02 → ENRESERV 05-09 → M 4MAIN 05-09 01:41
PROVIDERS: ADMIT Internal Medicine; ATTEND Family Medicine
DX: I65.21 Occlusion and stenosis of right carotid artery (principal); N17.9 Acute kidney failure, unspecified; I69.354 Hemiplegia and hemiparesis following cerebral infarction affecting left non-dominant side; N18.4 Chronic kidney disease, stage 4 (severe); E11.22 Type 2 diabetes mellitus with diabetic chronic kidney disease; I12.9 Hypertensive chronic kidney disease with stage 1 through stage 4 chronic kidney disease, or unspecified chronic kidney disease; D64.9 Anemia, unspecified; E87.5 Hyperkalemia; E03.9 Hypothyroidism, unspecified; Z95.0 Presence of cardiac pacemaker; Z92.3 Personal history of irradiation; Z79.899 Other long term (current) drug therapy; Z79.82 Long term (current) use of aspirin; Z79.01 Long term (current) use of anticoagulants; Z66 Do not resuscitate; E78.5 Hyperlipidemia, unspecified; Z85.46 Personal history of malignant neoplasm of prostate; Z96.642 Presence of left artificial hip joint

== ENCOUNTER → 2022-05-19 | Outpatient (CLI) | payer MEDICARE ==
[~2022-05-19] MED LIST changes: +ANTI2TAB16 PO; +ASPI81TA26 PO; +ATOR1TAB21 PO; +BARIUM SULFATE 700 MG TABLET (E-Z-DISK) As Ordered ONE; +CINN500C15 PO; +DORZ2SOL5 OU; +E-Z-PAQUE 96% w/w SUSP 176GM BTL As Ordered ONE; +HYDR10TAB PO; +ISOS10TA9 PO; +LEVO50TA5 PO; +MAGO400T2 PO; +METO1TAB32 PO; +OMEP40CA5 PO; +PROC20004 IJ; +SODI15SS PO; +VARIBAR NECTAR 40% w/v 240ML SUSP BTL As Ordered ONE; +VARIBAR PUDDING 40% w/v 230ML TUBE As Ordered ONE; +VITA500T41 PO; +[UNRECOGNIZED DRUG - CODE]
== END ==
LOC: M RAD 10:27
PROVIDERS: ATTEND Internal Medicine Cardiovascular Disease
DX: G45.9 Transient cerebral ischemic attack, unspecified (principal); Z86.73 Personal history of transient ischemic attack (TIA), and cerebral infarction without residual deficits

== ENCOUNTER 2022-09-22 14:39 | Inpatient (IN) | payer MEDICARE ==
[~2022-09-22] VITALS: Ht 165.1 cm; Wt 63.5 kg
[~2022-09-22 14:39] MED LIST changes: -BARIUM SULFATE 700 MG TABLET (E-Z-DISK) As Ordered ONE; -E-Z-PAQUE 96% w/w SUSP 176GM BTL As Ordered ONE; -PROC20004 IJ; +PROC20004 INJ; -VARIBAR NECTAR 40% w/v 240ML SUSP BTL As Ordered ONE; -VARIBAR PUDDING 40% w/v 230ML TUBE As Ordered ONE
[2022-09-22 15:47] LABS: BASO % 0.1 % (0.0-1.0); EOS # 0.3 10^3/uL (0.0-0.5); EOS % 3.9 % (0.0-3.0); LYMPH # 1.2 10^3/uL (1.5-5.0); LYMPH % 16.1 % (24.0-44.0); MEAN CORPUSCULAR HEMOGLOBIN 31.7 pg (27.0-33.0); MEAN CORPUSCULAR HGB CONC 32.3 g/dl (32.0-36.5); MEAN CORPUSCULAR VOLUME 98.4 fl (80.0-96.0); MONO # 0.7 10^3/uL (0.0-0.8); MONO % 8.5 % (2.0-8.0); NEUTROPHILS # 5.5 10^3/uL (1.5-8.5); PLATELET COUNT, AUTOMATED 175 10^3/uL (150-450); RED BLOOD COUNT 3.15 10^6/uL (4.30-6.10); WHITE BLOOD COUNT 7.7 10^3/uL (4.0-10.0)
[2022-09-22] MEDS ORDERED: **hydrALAZINE** 10 MG TAB PO ONE (15:55)
[2022-09-22] MEDS ORDERED: ISOSORBIDE DIN (ISORDIL) 10MG TAB PO ONE (15:55)
[2022-09-22 16:13] LABS: INR 1.13; PROTHROMBIN TIME 14.7 SECONDS (12.5-14.5)
[2022-09-22 16:14] LABS: PARTIAL THROMBOPLASTIN TIME 41.5 SECONDS (24.8-34.2)
[2022-09-22 16:15] LABS: RSV AMPLIFICATION NEGATIVE (NEGATIVE)
[2022-09-22 16:21] LABS: CALCIUM LEVEL 8.7 MG/DL (8.3-10.6); CREATININE FOR GFR 2.19 MG/DL (0.70-1.30); GLOMERULAR FILTRATION RATE 30.3 (>35); POTASSIUM SERUM 6.1 MMOL/L (3.5-5.1)
[2022-09-22] MEDS ORDERED: hydrALAZINE 20MG/ML 1ML VIAL IV ONE ×2 (16:30→21:20)
[2022-09-22] MEDS ORDERED: ONDANSETRON 4MG 2ML VIAL IV ONE ×2 (16:30→17:35)
[2022-09-22] MEDS ORDERED: PATIROMER SORBITEX CALCIUM 8.4 GM POWDER PACKET (VELTASSA) PO ONE (17:00)
[2022-09-22] MEDS ORDERED: **hydrALAZINE** 50 MG TAB PO ONE (17:00)
[2022-09-22] MEDS ORDERED: HEPARIN SOD (PORCINE) 5000UNITS/ML 1ML VIAL/SYRINGE SC SCH (18:25)
[2022-09-22] MEDS: ISOSORBIDE MON. (IMDUR) 30MG XR TAB PO ONE ×2 (20:30→21:21)
[2022-09-22] MEDS ORDERED: MECL-86 PO (20:53)
[2022-09-22] MEDS ORDERED: ASPI81TA26 PO (20:53)
[2022-09-22] MEDS ORDERED: HYDR10TAB PO (20:53)
[2022-09-22] MEDS ORDERED: FOLI1TAB11 PO (20:53)
[2022-09-22] MEDS ORDERED: ATOR80TA59 PO (20:53)
[2022-09-22] MEDS ORDERED: ONDANSETRON 4MG 2ML VIAL IV PRN ×2 (21:00→21:20)
[2022-09-22] MEDS ORDERED: HOME MED LIST COMPLETE! XX SCH (21:00)
[2022-09-22 21:41] VITALS: BP 201/89
[2022-09-22 23:47] LABS: CLOSTRIDIUM DIFFICILE PCR NEGATIVE (NEGATIVE)
[2022-09-23] MEDS: ACETAMINOPHEN 650MG SUPP PR PRN ×2 (00:45→06:16)
[2022-09-23 01:13] LABS: CALCIUM LEVEL 9.3 MG/DL (8.3-10.6); CHOLESTEROL RISK RATIO 2.6 (<5); CREATININE FOR GFR 2.19 MG/DL (0.70-1.30); GLOMERULAR FILTRATION RATE 30.3 (>35); HDL CHOLESTEROL 41.1 MG/DL (>40); LDL CHOLESTEROL 39.7 MG/DL (<100); POTASSIUM SERUM 5.4 MMOL/L (3.5-5.1)
[2022-09-23 01:15] LABS: THYROID STIMULATING HORMONE 2.073 uIU/ML (0.55-4.78)
[2022-09-23 01:32] LABS: HEMOGLOBIN A1c 6.9 % (4.0-6.0)
[2022-09-23 01:46] LABS: APPEARANCE, URINE MANUAL CLEAR (CLEAR); BILIRUBIN, URINE MANUAL NEGATIVE (NEGATIVE); BLOOD URINE MANUAL NEGATIVE (NEGATIVE); COLOR, URINE MANUAL YELLOW (YELLOW); GLUCOSE, URINE (UA) MANUAL NEGATIVE (NEGATIVE); KETONE, URINE MANUAL NEGATIVE (NEGATIVE); LEUKOCYTE ESTERASE, URINE MAN NEGATIVE (NEGATIVE); NITRITE, URINE MANUAL NEGATIVE (NEGATIVE); PROTEIN, URINE MANUAL 2+ mg/dL (NEGATIVE); UROBILINOGEN, URINE MANUAL NORMAL (NORMAL)
[2022-09-23 02:03] LABS: RBC, URINE 0-1 /hpf (0-3); SQUAMOUS EPITHELIAL CELL URINE SMALL AMOUNT /hpf (SMALL AMT); WBC, URINE 0-1 /hpf (0-3)
[2022-09-23] MEDS: metroNIDAZOLE 500 MG in IV 1 EA IV SCH ×3 (02:03→16:58)
[2022-09-23 02:04] LABS: BACTERIA, URINE NONE SEEN; HYALINE CAST, URINE NONE SEEN /lpf (0-1)
[2022-09-23] MEDS ORDERED: PILL CUTTER 1 EACH XX PRN (02:30)
[2022-09-23] MEDS: CIPROFLOXACIN 400 MG in IV 1 EA IV SCH (03:09)
[2022-09-23] MEDS: LEVOTHYROXINE 50MCG TABLET (0.05MG) PO SCH (06:00)
[2022-09-23 06:03] LABS: HEMATOCRIT 28.8 % (42.0-52.0); HEMOGLOBIN 9.7 g/dl (13.5-17.5); MEAN CORPUSCULAR HEMOGLOBIN 32.6 pg (27.0-33.0); MEAN CORPUSCULAR HGB CONC 33.7 g/dl (32.0-36.5); MEAN CORPUSCULAR VOLUME 96.6 fl (80.0-96.0); PLATELET COUNT, AUTOMATED 155 10^3/uL (150-450); RED BLOOD COUNT 2.98 10^6/uL (4.30-6.10); WHITE BLOOD COUNT 12.2 10^3/uL (4.0-10.0)
[2022-09-23 06:19] LABS: INR 1.13; PROTHROMBIN TIME 14.7 SECONDS (12.5-14.5)
[2022-09-23 06:22] LABS: MAGNESIUM LEVEL 1.5 MG/DL (1.8-2.4)
[2022-09-23 06:24] LABS: BILIRUBIN,TOTAL 0.4 MG/DL (0.3-1.2); CALCIUM LEVEL 9.4 MG/DL (8.3-10.6); CREATININE FOR GFR 2.4 MG/DL (0.70-1.30); GLOMERULAR FILTRATION RATE 27.3 (>35); POTASSIUM SERUM 5.6 MMOL/L (3.5-5.1); TOTAL PROTEIN 6.5 G/DL (5.7-8.2)
[2022-09-23 08:00] VITALS: BP 172/72
[2022-09-23 08:44] LABS: C REACTIVE PROTEIN QUANTITATIV 0.6 MG/DL (<1.0)
[2022-09-23] MEDS ORDERED: FERROUS SULFATE 325MG TAB PO SCH (09:00)
[2022-09-23] MEDS: MAG SULF 1GM/100ML (MAG RUN) 1 GM in IV 1 EA IV SCH ×2 (09:06→09:45)
[2022-09-23 09:22] LABS: ERYTHROCYTE SEDIMENTATION RATE 12 mm/hr (0-20)
[2022-09-23] MEDS: COSOPT OCUMETER PLUS 10ML (DORZOLAMIDE/TIMOLOL) OU SCH ×2 (09:39→20:08)
[2022-09-23] MEDS: APIXABAN 2.5 MG TAB (ELIQUIS) PO SCH ×2 (09:39→20:08)
[2022-09-23] MEDS: allopurinoL 300 MG TAB PO SCH (09:39)
[2022-09-23] MEDS: ASPIRIN 81MG ENTERIC TABLET PO SCH (09:40)
[2022-09-23] MEDS: ATORVASTATIN 20 MG TAB PO SCH (09:40)
[2022-09-23] MEDS: FOLIC ACID 1MG TAB PO SCH (09:40)
[2022-09-23 12:00] VITALS: BP 132/62
[2022-09-23] MEDS ORDERED: PATIROMER SORBITEX CALCIUM 8.4 GM POWDER PACKET (VELTASSA) PO ONE (12:00)
[2022-09-23] MEDS ORDERED: VARIBAR PUDDING 40% w/v 230ML TUBE As Ordered ONE (13:10)
[2022-09-23] MEDS ORDERED: VARIBAR NECTAR 40% w/v 240ML SUSP BTL As Ordered ONE (13:10)
[2022-09-23] MEDS ORDERED: BARIUM SULFATE 700 MG TABLET (E-Z-DISK) As Ordered ONE (13:11)
[2022-09-23] MEDS ORDERED: E-Z-PAQUE 96% w/w SUSP 176GM BTL As Ordered ONE (13:11)
[2022-09-23 16:00] VITALS: BP 179/78
[2022-09-23 16:17] VITALS: BP 179/78
[2022-09-23 18:53] LABS: CALCIUM LEVEL 9.3 MG/DL (8.3-10.6); CREATININE FOR GFR 2.47 MG/DL (0.70-1.30); GLOMERULAR FILTRATION RATE 26.4 (>35); POTASSIUM SERUM 4.7 MMOL/L (3.5-5.1)
[2022-09-23 20:00] VITALS: BP 157/67
[2022-09-23] MEDS ORDERED: LATANOPROST 0.005% OPHTH SOLN 2.5 ML OU SCH (21:00)
[2022-09-24] VITALS: BP 150/66
[2022-09-24] MEDS: metroNIDAZOLE 500 MG in IV 1 EA IV SCH ×2 (01:33→08:41)
[2022-09-24] MEDS: CIPROFLOXACIN 400 MG in IV 1 EA IV SCH (01:39)
[2022-09-24 04:00] VITALS: BP 163/72
[2022-09-24 05:32] LABS: BASO % 0.2 % (0.0-1.0); EOS # 0.3 10^3/uL (0.0-0.5); EOS % 2.9 % (0.0-3.0); HEMATOCRIT 28.2 % (42.0-52.0); HEMOGLOBIN 9.6 g/dl (13.5-17.5); LYMPH # 1.3 10^3/uL (1.5-5.0); LYMPH % 13.6 % (24.0-44.0); MEAN CORPUSCULAR HEMOGLOBIN 32.4 pg (27.0-33.0); MEAN CORPUSCULAR VOLUME 95.3 fl (80.0-96.0); MONO # 0.8 10^3/uL (0.0-0.8); MONO % 8.3 % (2.0-8.0); NEUTROPHILS % 74.7 % (36.0-66.0); PLATELET COUNT, AUTOMATED 145 10^3/uL (150-450); RED BLOOD COUNT 2.96 10^6/uL (4.30-6.10); WHITE BLOOD COUNT 9.3 10^3/uL (4.0-10.0)
[2022-09-24 05:47] LABS: MAGNESIUM LEVEL 1.9 MG/DL (1.8-2.4)
[2022-09-24 05:49] LABS: CALCIUM LEVEL 8.9 MG/DL (8.3-10.6); CREATININE FOR GFR 2.68 MG/DL (0.70-1.30); POTASSIUM SERUM 4.5 MMOL/L (3.5-5.1)
[2022-09-24] MEDS: LEVOTHYROXINE 50MCG TABLET (0.05MG) PO SCH (06:06)
[2022-09-24 08:00] VITALS: BP 166/74
[2022-09-24] MEDS: ATORVASTATIN 20 MG TAB PO SCH (08:36)
[2022-09-24] MEDS: APIXABAN 2.5 MG TAB (ELIQUIS) PO SCH (08:37)
[2022-09-24] MEDS: FOLIC ACID 1MG TAB PO SCH (08:37)
[2022-09-24] MEDS: ASPIRIN 81MG ENTERIC TABLET PO SCH (08:37)
[2022-09-24] MEDS: allopurinoL 300 MG TAB PO SCH (08:37)
[2022-09-24] MEDS: COSOPT OCUMETER PLUS 10ML (DORZOLAMIDE/TIMOLOL) OU SCH (08:54)
[2022-09-24] MEDS ORDERED: FERROUS SULFATE 325MG TAB PO SCH (09:00)
[2022-09-24] MEDS ORDERED: ASCORBIC ACID 500 MG TAB PO SCH (09:00)
[2022-09-24] MEDS ORDERED: NS 500 ML IV ONE (09:50)
[2022-09-24] MEDS ORDERED: HYDR50TA PO (09:58)
[2022-09-24] MEDS ORDERED: FERR1TAB8 PO (09:58)
[2022-09-24] MEDS ORDERED: ISOS1TAB35 PO (09:58)
[2022-09-24] MEDS ORDERED: SODI650T PO (09:58)
[2022-09-24] MEDS ORDERED: ASCO50TA PO (09:58)
== END 2022-09-24 12:20 | disposition home health service (06) | DRG 69 ==
LOC: M ED 14:39 → EDBD 14:39 → M ED INP 14:40 → OBSVTOIN 20:58 → M ICU 09-23 07:39
PROVIDERS: ADMIT Student in an Organized Health Care Education/Training Program; ATTEND Student in an Organized Health Care Education/Training Program
PROC: B246ZZZ Ultrasonography of Right and Left Heart (ICD-10-PCS; principal; 2022-09-23)
DX: G45.9 Transient cerebral ischemic attack, unspecified (principal); N18.4 Chronic kidney disease, stage 4 (severe); I69.354 Hemiplegia and hemiparesis following cerebral infarction affecting left non-dominant side; I16.0 Hypertensive urgency; Z66 Do not resuscitate; I48.91 Unspecified atrial fibrillation; I34.0 Nonrheumatic mitral (valve) insufficiency; I25.10 Atherosclerotic heart disease of native coronary artery without angina pectoris; E11.22 Type 2 diabetes mellitus with diabetic chronic kidney disease; I12.9 Hypertensive chronic kidney disease with stage 1 through stage 4 chronic kidney disease, or unspecified chronic kidney disease; E78.5 Hyperlipidemia, unspecified; R42 Dizziness and giddiness; E87.5 Hyperkalemia; E03.9 Hypothyroidism, unspecified; M10.9 Gout, unspecified; D50.9 Iron deficiency anemia, unspecified; R19.7 Diarrhea, unspecified; D72.829 Elevated white blood cell count, unspecified; Z79.01 Long term (current) use of anticoagulants; Z85.46 Personal history of malignant neoplasm of prostate; Z79.890 Hormone replacement therapy; Z20.822 Contact with and (suspected) exposure to COVID-19; Z79.82 Long term (current) use of aspirin; Z79.899 Other long term (current) drug therapy

== ENCOUNTER 2022-10-08 15:28 | Inpatient (IN) | payer MEDICARE ==
[~2022-10-08] VITALS: Ht 162.6 cm; Wt 64.8 kg
[~2022-10-08 15:28] MED LIST changes: +ASCO50TA PO; +ATOR80TA59 PO; +FERR1TAB8 PO; +ISOS1TAB35 PO; +SODI650T PO
[2022-10-08 17:13] LABS: HEMATOCRIT 29.5 % (42.0-52.0); HEMOGLOBIN 9.8 g/dl (13.5-17.5); MEAN CORPUSCULAR HEMOGLOBIN 32.7 pg (27.0-33.0); MEAN CORPUSCULAR HGB CONC 33.2 g/dl (32.0-36.5); MEAN CORPUSCULAR VOLUME 98.3 fl (80.0-96.0); PLATELET COUNT, AUTOMATED 152 10^3/uL (150-450); WHITE BLOOD COUNT 4.8 10^3/uL (4.0-10.0)
[2022-10-08 17:39] LABS: CALCIUM LEVEL 8.4 MG/DL (8.3-10.6); CREATININE FOR GFR 3.11 MG/DL (0.70-1.30); GLOMERULAR FILTRATION RATE 20.2 (>35); POTASSIUM SERUM 4.4 MMOL/L (3.5-5.1)
[2022-10-08] MEDS ORDERED: NS 1,000 ML IV ONE (18:25)
[2022-10-08 19:02] LABS: VENOUS BASE EXCESS -4.5 (-2.0-2.0); VENOUS O2 SATURATION 58.4 % (60.0-80.0); VENOUS PARTIAL PRESSURE CO2 40.3 mmHg (38.0-50.0); VENOUS PARTIAL PRESSURE O2 32.4 mmHg (30.0-50.0); VENOUS PH 7.335 UNITS (7.330-7.430); VENOUS TOTAL CO2 22.2 MEQ/L (24.0-28.0)
[2022-10-08] MEDS ORDERED: MECLIZINE 25 MG TABLET PO ONE (19:20)
[2022-10-08 19:34] LABS: CK-MB VALUE MASS 1.4 NG/ML (<3.6)
[2022-10-08 19:42] LABS: MB/CK RELATIVE INDEX 0.66 (< OR =4)
[2022-10-08 20:25] LABS: CK-MB VALUE MASS 1.3 NG/ML (<3.6)
[2022-10-08 20:29] LABS: MB/CK RELATIVE INDEX 0.76 (< OR =4)
[2022-10-08] MEDS ORDERED: BIMA0.036 OU (21:16)
[2022-10-08] MEDS ORDERED: HYDR50TA PO (21:16)
[2022-10-08] MEDS ORDERED: VITA-158 PO (21:16)
[2022-10-08] MEDS ORDERED: SODI650T PO (21:16)
[2022-10-08] MEDS ORDERED: ISOS1TAB35 PO (21:16)
[2022-10-08] MEDS ORDERED: FERR1TAB8 PO (21:16)
[2022-10-08] MEDS ORDERED: HOME MED LIST COMPLETE! XX SCH (21:20)
[2022-10-08] MEDS ORDERED: ACETAMINOPHEN TAB 650MG DOSE (2X325MG) PO PRN (22:05)
[2022-10-08] MEDS ORDERED: NS 1,000 ML IV SCH (23:00)
[2022-10-09] MEDS: APIXABAN 2.5 MG TAB (ELIQUIS) PO SCH ×3 (00:28→20:39)
[2022-10-09] MEDS: METOPROLOL SUCC *XL* 25MG TAB (TopROL *XL*) PO SCH ×2 (00:29→20:48)
[2022-10-09] MEDS: **hydrALAZINE** 50 MG TAB PO SCH ×3 (00:29→20:39)
[2022-10-09 00:30] VITALS: BP_SYST 139; BP_SYST 144; BP_SYST 160; BP_DIAS 59; BP_DIAS 65; BP_DIAS 80; BP_DIAS 90
[2022-10-09] MEDS ORDERED: DOXYCYCLINE HYCLATE 100MG TABLET PO SCH (02:55)
[2022-10-09 05:00] VITALS: BP_SYST 146; BP_SYST 149; BP_SYST 162; BP_DIAS 67; BP_DIAS 69; BP_DIAS 70
[2022-10-09] MEDS: LEVOTHYROXINE 50MCG TABLET (0.05MG) PO SCH (05:26)
[2022-10-09 06:00] VITALS: BP 165/72
[2022-10-09 07:07] LABS: CALCIUM LEVEL 7.6 MG/DL (8.3-10.6); CREATININE FOR GFR 2.69 MG/DL (0.70-1.30); GLOMERULAR FILTRATION RATE 23.9 (>35)
[2022-10-09] MEDS: MECLIZINE 25 MG TABLET PO SCH ×3 (08:55→20:39)
[2022-10-09] MEDS: ATORVASTATIN 20 MG TAB PO SCH (08:55)
[2022-10-09] MEDS: OMEPRAZOLE 20MG CAP PO SCH (08:55)
[2022-10-09] MEDS: SODIUM BICARBONATE 325 MG TAB PO SCH ×3 (09:00→20:40)
[2022-10-09] MEDS: ISOSORBIDE MON. (IMDUR) 30MG XR TAB PO SCH (09:00)
[2022-10-09] MEDS: ASPIRIN 81MG ENTERIC TABLET PO SCH (09:00)
[2022-10-09] MEDS: COSOPT OCUMETER PLUS 10ML (DORZOLAMIDE/TIMOLOL) OU SCH ×2 (09:00→21:26)
[2022-10-09] MEDS: allopurinoL 300 MG TAB PO SCH (09:01)
[2022-10-09] MEDS ORDERED: NS 1,000 ML IV SCH ×2 (10:00→10:30)
[2022-10-09 15:52] VITALS: BP_SYST 113; BP_SYST 114; BP_SYST 126; BP_DIAS 55; BP_DIAS 56; BP_DIAS 57
[2022-10-09 18:50] VITALS: BP 137/60
[2022-10-09 20:00] VITALS: BP 136/59
[2022-10-09] MEDS ORDERED: LATANOPROST 0.005% OPHTH SOLN 2.5 ML OU SCH (21:00)
[2022-10-10] MEDS: LEVOTHYROXINE 50MCG TABLET (0.05MG) PO SCH (05:11)
[2022-10-10 05:33] VITALS: BP 151/48
[2022-10-10 06:22] LABS: HEMATOCRIT 26.2 % (42.0-52.0); HEMOGLOBIN 8.6 g/dl (13.5-17.5); MEAN CORPUSCULAR HEMOGLOBIN 32.1 pg (27.0-33.0); MEAN CORPUSCULAR HGB CONC 32.8 g/dl (32.0-36.5); MEAN CORPUSCULAR VOLUME 97.8 fl (80.0-96.0); RED BLOOD COUNT 2.68 10^6/uL (4.30-6.10); WHITE BLOOD COUNT 3.6 10^3/uL (4.0-10.0)
[2022-10-10 06:35] LABS: MAGNESIUM LEVEL 1.4 MG/DL (1.8-2.4)
[2022-10-10 06:36] LABS: CALCIUM LEVEL 7.6 MG/DL (8.3-10.6); CREATININE FOR GFR 2.34 MG/DL (0.70-1.30); GLOMERULAR FILTRATION RATE 28.1 (>35); POTASSIUM SERUM 4.1 MMOL/L (3.5-5.1)
[2022-10-10 07:09] LABS: PLATELET COUNT, AUTOMATED 96 10^3/uL (150-450)
[2022-10-10] MEDS ORDERED: MAGNESIUM OXIDE 400MG TAB (MAG-OX) PO ONE (07:20)
[2022-10-10] MEDS: MAG SULF 1GM/100ML (MAG RUN) 1 GM in IV 1 EA IV SCH ×2 (08:01→08:15)
[2022-10-10 08:02] VITALS: BP 152/58
[2022-10-10] MEDS: ASPIRIN 81MG ENTERIC TABLET PO SCH (08:02)
[2022-10-10] MEDS: ATORVASTATIN 20 MG TAB PO SCH (08:02)
[2022-10-10] MEDS: SODIUM BICARBONATE 325 MG TAB PO SCH ×2 (08:02→15:45)
[2022-10-10] MEDS: OMEPRAZOLE 20MG CAP PO SCH (08:02)
[2022-10-10] MEDS: MECLIZINE 25 MG TABLET PO SCH ×2 (08:02→15:45)
[2022-10-10] MEDS: **hydrALAZINE** 50 MG TAB PO SCH (08:02)
[2022-10-10] MEDS: ISOSORBIDE MON. (IMDUR) 30MG XR TAB PO SCH (08:02)
[2022-10-10] MEDS: allopurinoL 300 MG TAB PO SCH (08:07)
[2022-10-10] MEDS: APIXABAN 2.5 MG TAB (ELIQUIS) PO SCH (08:07)
[2022-10-10] MEDS: COSOPT OCUMETER PLUS 10ML (DORZOLAMIDE/TIMOLOL) OU SCH (08:07)
[2022-10-10] MEDS ORDERED: FERROUS SULFATE 325MG TAB PO SCH (09:00)
[2022-10-10 12:59] VITALS: BP 118/54
[2022-10-10 14:00] VITALS: BP 112/50
[2022-10-10 14:42] LABS: HEMATOCRIT 27.5 % (42.0-52.0); MEAN CORPUSCULAR HEMOGLOBIN 32.5 pg (27.0-33.0); MEAN CORPUSCULAR HGB CONC 32.7 g/dl (32.0-36.5); MEAN CORPUSCULAR VOLUME 99.3 fl (80.0-96.0); RED BLOOD COUNT 2.77 10^6/uL (4.30-6.10); WHITE BLOOD COUNT 3.7 10^3/uL (4.0-10.0)
[2022-10-10 14:49] LABS: PLATELET COUNT, AUTOMATED 99 10^3/uL (150-450)
[2022-10-10] MEDS ORDERED: MECL-86 PO (15:06)
[2022-10-10 16:10] LABS: ATYPICAL LYMPH 3 % (0-5); EOSINOPHILS 2 % (0-3); LYMPHOCYTES 25 % (16-44); MONOCYTES 9 % (0-5); NEUTROPHILS 61 % (28-66)
[2022-10-10 16:11] LABS: MICROCYTOSIS 1+
[2022-10-10 16:12] LABS: PLATELET ESTIMATE DECREASED (NORMAL)
== END 2022-10-10 17:29 | disposition home health service (06) | DRG 312 ==
LOC: M ED 15:28 → M ED INP 22:02 → M MSPAV 10-09 18:50
PROVIDERS: ADMIT Internal Medicine; ATTEND Internal Medicine
DX: I95.1 Orthostatic hypotension (principal); U07.1 COVID-19; N17.9 Acute kidney failure, unspecified; N18.4 Chronic kidney disease, stage 4 (severe); I50.32 Chronic diastolic (congestive) heart failure; I13.0 Hypertensive heart and chronic kidney disease with heart failure and stage 1 through stage 4 chronic kidney disease, or unspecified chronic kidney disease; R19.7 Diarrhea, unspecified; I45.10 Unspecified right bundle-branch block; Z86.73 Personal history of transient ischemic attack (TIA), and cerebral infarction without residual deficits; I48.91 Unspecified atrial fibrillation; I25.10 Atherosclerotic heart disease of native coronary artery without angina pectoris; M10.9 Gout, unspecified; E03.9 Hypothyroidism, unspecified; K21.9 Gastro-esophageal reflux disease without esophagitis; E11.9 Type 2 diabetes mellitus without complications; Z79.899 Other long term (current) drug therapy; Z79.82 Long term (current) use of aspirin

== ENCOUNTER 2023-02-18 18:32 | Observation (INO) | payer MEDICARE ==
[~2023-02-18] VITALS: Ht 165.1 cm; Wt 65.7 kg
[~2023-02-18 18:32] MED LIST changes: +BIMA0.036 OU; -COSO1SOL3 OU; +DORZ10DR10 OU; +VITA-158 PO
[2023-02-18] MEDS ORDERED: MECLIZINE 25 MG TABLET PO ONE (20:40)
[2023-02-18] MEDS ORDERED: LATANOPROST 0.005% OPHTH SOLN 2.5 ML OU SCH (21:00)
[2023-02-18] MEDS ORDERED: METOPROLOL SUCC *XL* 25MG TAB (TopROL *XL*) PO SCH (21:00)
[2023-02-18] MEDS: MECLIZINE 25 MG TABLET PO SCH (21:00)
[2023-02-18] MEDS ORDERED: ACETAMINOPHEN TAB 650MG DOSE (2X325MG) PO PRN (21:40)
[2023-02-18] MEDS ORDERED: MECL-86 PO (21:55)
[2023-02-18] MEDS ORDERED: HOME MED LIST COMPLETE! XX SCH (21:55)
[2023-02-18] MEDS: DOCUSATE SODIUM 100MG CAPSULE PO SCH (22:04)
[2023-02-18 22:25] LABS: HEMOGLOBIN A1c 7.1 % (4.0-6.0)
[2023-02-18 22:30] LABS: CHOLESTEROL RISK RATIO 2.72 (<5); HDL CHOLESTEROL 37.4 MG/DL (>40); NON-HDL-C 64.6 MG/DL
[2023-02-18] MEDS ORDERED: hydrALAZINE 20MG/ML 1ML VIAL IV ONE (23:00)
[2023-02-19 00:48] VITALS: BP 187/86
[2023-02-19] MEDS: COSOPT OCUMETER PLUS 10ML (DORZOLAMIDE/TIMOLOL) OU SCH ×2 (01:31→09:14)
[2023-02-19 04:15] VITALS: BP 138/65
[2023-02-19 04:16] LABS: HEMATOCRIT 31.2 % (42.0-52.0); HEMOGLOBIN 9.9 g/dl (13.5-17.5); MEAN CORPUSCULAR HGB CONC 31.7 g/dl (32.0-36.5); PLATELET COUNT, AUTOMATED 142 10^3/uL (150-450); RED BLOOD COUNT 3.09 10^6/uL (4.30-6.10); WHITE BLOOD COUNT 6.7 10^3/uL (4.0-10.0)
[2023-02-19 04:51] LABS: CALCIUM LEVEL 8.9 MG/DL (8.3-10.6); CREATININE FOR GFR 2.58 MG/DL (0.70-1.30); GLOMERULAR FILTRATION RATE 25.1 (>35); MAGNESIUM LEVEL 1.5 MG/DL (1.8-2.4); POTASSIUM SERUM 5.2 MMOL/L (3.5-5.1)
[2023-02-19] MEDS ORDERED: MAG SULF 1GM/100ML (MAG RUN) 1 GM in IV 1 EA IV ONE ×2 (06:00→11:35)
[2023-02-19] MEDS ORDERED: LEVOTHYROXINE 50MCG TABLET (0.05MG) PO SCH (06:00)
[2023-02-19 07:55] VITALS: BP 158/70
[2023-02-19] MEDS ORDERED: ISOSORBIDE MON. (IMDUR) 30MG XR TAB PO SCH (09:00)
[2023-02-19] MEDS ORDERED: ASPIRIN 81MG ENTERIC TABLET PO SCH (09:00)
[2023-02-19] MEDS ORDERED: OMEPRAZOLE 20MG CAP PO SCH (09:00)
[2023-02-19] MEDS ORDERED: APIXABAN 2.5 MG TAB (ELIQUIS) PO SCH (09:00)
[2023-02-19] MEDS ORDERED: FERROUS SULFATE 325MG TAB PO SCH (09:00)
[2023-02-19] MEDS ORDERED: allopurinoL 300 MG TAB PO SCH (09:00)
[2023-02-19] MEDS ORDERED: FOLIC ACID 1MG TAB PO SCH (09:00)
[2023-02-19] MEDS ORDERED: **hydrALAZINE** 50 MG TAB PO SCH (09:00)
[2023-02-19] MEDS ORDERED: ATORVASTATIN 20 MG TAB PO SCH (09:00)
[2023-02-19 09:12] VITALS: BP 158/70
[2023-02-19] MEDS: MECLIZINE 25 MG TABLET PO SCH (09:12)
[2023-02-19] MEDS: DOCUSATE SODIUM 100MG CAPSULE PO SCH (09:13)
[2023-02-19] MEDS ORDERED: SOD POLYSTYRENE SULFONATE SUSP 15GM 60ML UD PO ONE (10:00)
[2023-02-19 11:49] VITALS: BP 144/65
== END 2023-02-19 15:31 | disposition home or self-care (01) ==
LOC: M ED 18:32 → M ED INP 18:33 → ENRESERV 23:13 → M PCU 02-19 00:18
PROVIDERS: ADMIT Internal Medicine; ATTEND Internal Medicine
DX: G45.9 Transient cerebral ischemic attack, unspecified (principal); I16.0 Hypertensive urgency; I65.22 Occlusion and stenosis of left carotid artery; I48.91 Unspecified atrial fibrillation; I25.10 Atherosclerotic heart disease of native coronary artery without angina pectoris; E78.5 Hyperlipidemia, unspecified; D64.9 Anemia, unspecified; M10.9 Gout, unspecified; E87.5 Hyperkalemia; E83.42 Hypomagnesemia; N18.30 Chronic kidney disease, stage 3 unspecified; Z79.82 Long term (current) use of aspirin; Z79.01 Long term (current) use of anticoagulants; Z95.0 Presence of cardiac pacemaker; Z79.899 Other long term (current) drug therapy
CPT/HCPCS: 36415; 70450; 80048; 80061; 83036; 83735; 85027; 87635; 93005; 93306; 93880; 96361; 96374; 96375; 99285; J0360; J3475